=== PATIENT | male | born 1960 | race Caucasian/White ===

== ENCOUNTER 2021-06-07 09:00 | Outpatient (RCR) | payer OTHER, SELFPAY | END 2021-07-06 10:46 | disposition home or self-care (01) | LOC: HO.WCC 09:00 | PROVIDERS: PCP Internal Medicine; Visit Provider Surgery | DX: E11.622 Type 2 diabetes mellitus with other skin ulcer (principal); L97.812 Non-pressure chronic ulcer of other part of right lower leg with fat layer exposed; I87.311 Chronic venous hypertension (idiopathic) with ulcer of right lower extremity; E11.40 Type 2 diabetes mellitus with diabetic neuropathy, unspecified; E11.51 Type 2 diabetes mellitus with diabetic peripheral angiopathy without gangrene; I10 Essential (primary) hypertension; F17.210 Nicotine dependence, cigarettes, uncomplicated | CPT/HCPCS: 11042; 29580; 99212; 99214 ==

== ENCOUNTER 2021-10-23 13:34 | Outpatient (RCR) | payer OTHER, SELFPAY ==
--- NOTE | ~2021-10-23 | XR_ITS ---
EXAMINATION: XR FOOT, RIGHT CLINICAL INFORMATION: Nonhealing wound of the right foot. COMPARISON: None TECHNIQUE: AP, lateral, and oblique views of the right foot. FINDINGS: No convincing evidence for an acute bony erosion. There is evidence of some degenerative changes. XR/XR foot RT 2V IMPRESSION: Degenerative change. No convincing evidence for an acute bony erosion.
[2021-11-06 14:56] LABS: MANUAL DIFF FLAG NO
[2021-11-06 15:24] LABS: Basophils Absolute Auto 0.1 X10*3/uL (0.0-0.2); Basophils Percent Auto 0.7 % (0-2); Eosinophils Absolute Auto 0.1 X10*3/uL (0.0-0.4); Eosinophils Percent Auto 0.9 % (0-4); Hematocrit 54.6 % (42.0-52.0); Hemoglobin 17.9 g/dl (14.0-18.0); Imm Gran Abs Auto 0.03 X10*3/uL (0.00-0.03); Imm Gran Pct Auto 0.3 % (0.0-0.4); Lymphocytes Absolute Auto 2.8 X10*3/uL (1.2-4.9); Lymphocytes Percent Auto 27.2 % (20-40); Mean Corpuscular HGB Conc 32.8 g/dl (31.0-36.0); Mean Corpuscular Hemoglobin 29.3 pg (27.0-33.0); Mean Corpuscular Volume 89.4 fL (80.0-98.0); Mean Platelet Volume 9.3 fL (9.4-12.4); Monocytes Absolute Auto 0.7 X10*3/uL (0.1-1.2); Neutrophils Absolute Auto 6.6 x10*3/uL (2.0-8.3); Neutrophils Percent Auto 63.9 % (45-73); Platelet Count 234 X10*3/uL (160-400); Red Blood Count 6.11 X10*6/uL (4.60-5.80); Red Cell Distribution Width 12.6 % (11.0-16.0); White Blood Count 10.3 X10*3/uL (4.8-10.8)
[2021-11-06 15:47] LABS: Anion Gap 13 (12-20); Blood Urea Nitrogen 13 mg/dL (9-16); C Reactive Protein 0.81 mg/dL (< or = 0.50); Carbon Dioxide 30 mmol/L (22-29); Chloride 99 mmol/L (96-108); Estimated Glomerular Filt Rate > 60; Glucose Random 182 mg/dL (60-115); Potassium 5.4 mmol/L (3.3-5.1); Sodium 137 mmol/L (135-145)
[2021-11-06 16:02] LABS: Estimated Average Glucose 329 mg/dL; Hemoglobin A1c % 13.1 %
[2021-11-06 16:04] LABS: Erythrocyte Sedimentation Rate 2 MM/HR (0-15)
== END 2022-01-11 09:11 | disposition home or self-care (01) ==
LOC: HO.WCC 13:34
PROVIDERS: PCP Internal Medicine; Visit Provider Physician Assistant
DX: Z09 Encounter for follow-up examination after completed treatment for conditions other than malignant neoplasm (principal); E11.51 Type 2 diabetes mellitus with diabetic peripheral angiopathy without gangrene; E11.40 Type 2 diabetes mellitus with diabetic neuropathy, unspecified; I10 Essential (primary) hypertension; F17.210 Nicotine dependence, cigarettes, uncomplicated; Z86.718 Personal history of other venous thrombosis and embolism; Z86.31 Personal history of diabetic foot ulcer
CPT/HCPCS: 11043; 36415; 73620; 80048; 83036; 84134; 85025; 85652; 86140; 87071; 87077; 87186; 87205; 99212; 99213

== ENCOUNTER 2021-11-14 10:27 | Inpatient (IN) | payer OTHER, SELFPAY ==
--- NOTE | ~2021-11-14 | XR_ITS ---
EXAMINATION: XR FOOT, RIGHT CLINICAL INFORMATION: Pain. COMPARISON: None TECHNIQUE: AP, lateral, and oblique views of the right foot. FINDINGS: There is no fracture or dislocation or periosteal elevation or reaction especially along the base of the first MTP joint. There is a soft tissue ulceration without gas visualized at the base of the first MTP joint. There is however mild soft tissue swelling. XR/XR foot RT min 3V IMPRESSION: Likely soft tissue ulceration plantar aspect inferior to the first MTP joint. There is no bony pneumonitis suspect any osteomyelitis. No focal acute fracture, dislocation or subluxation seen.
--- NOTE | ~2021-11-14 | MR_ITS ---
EXAMINATION: MRI FOOT WITHOUT AND WITH CONTRAST, RIGHT CLINICAL INFORMATION: Deep foot wound. Evaluate for osteomyelitis. COMPARISON: Most recent right foot radiographs dated 11/14/2021. TECHNIQUE: Multisequence MR imaging of the right foot was obtained before and after the IV administration of 10 mL Gadavist contrast on a high-field strength scanner. FINDINGS: There is soft tissue ulceration along the plantar aspect of the 1st metatarsal head. This measures approximately 1.5 x 1.5 x 2 cm and extends to the region of the sesamoids. Additionally there is a peripherally enhancing fluid collection which extends between the base of the 1st and 2nd phalanx to the dorsal aspect of the 1st proximal phalanx measuring up to 3.4 cm in craniocaudal dimension, consistent with an associated abscess formation. This demonstrates peripheral enhancement. There is adjacent skin thickening as well as prominent subcutaneous edema and postcontrast enhancement, consistent with acute cellulitis. There is mildly increased T2 signal as well as decreased T1 signal and mild postcontrast enhancement within the tibial and fibular hallux sesamoids, consistent with acute osteomyelitis. There is mildly increased T2 signal with normal T1 signal within the base of the 1st proximal phalanx, likely representing reactive edema. No additional abnormal marrow signal. No stress reaction or fracture. Edema within the intrinsic musculature of the foot, which can be seen in diabetic patients. MR/MR foot RT wo/w con IMPRESSION: Soft tissue ulceration along the plantar aspect of the 1st metatarsal head which extends deep to the level of the hallux sesamoids. Associated cellulitis and abscess formation which extends dorsally between the base of the 1st and 2nd proximal phalanges. Acute osteomyelitis within the tibial and fibular hallux sesamoids. Mild reactive marrow edema in the 1st proximal phalangeal base.
[2021-11-14 11:25] VITALS: BP 150/81; PULSE 101; RESP 18; TEMP 36.9; O2SAT 96; BMI 37.5
--- NOTE | 2021-11-14 15:29 | ED_ITS ---
HPI - Extremity Injury (Lower) General Chief Complaint: Extremity Injury, Lower Stated Complaint: right foot wound Time Seen by Provider: 11/14/21 15:07 Source: patient Mode of arrival: ambulatory Limitations: no limitations History of Present Illness HPI Narrative: 60-year-old male past medical history of diabetes and chronic right great toe plantar also that requires IV antibiotics by his wound care provider Bernar. WOund began as a superficial callus ulcer was then became deeper as months go by. Patient states his fingerstick has been in the 200s for the past 2 weeks. Patient states mild foul odor and pus. Patient failed outpatient oral antibiotic treatment. Related Data Home Medications Medication Instructions Recorded Confirmed amitriptyline 25 mg tablet 1 tab PO BEDTIME 11/14/21 11/14/21 atorvastatin 40 mg tablet 1 tab PO BEDTIME 11/14/21 11/14/21 dulaglutide 1.5 mg/0.5 mL 1.5 mg SUBCUT MO 11/14/21 11/14/21 subcutaneous pen injector (Trulicity) empagliflozin 25 mg tablet 1 tab PO DAILY 11/14/21 11/14/21 (Jardiance) levofloxacin 500 mg tablet 1 tab PO DAILY 11/14/21 11/14/21 metformin 1,000 mg tablet 1 tab PO BID 11/14/21 11/14/21 montelukast 10 mg tablet 1 tab PO BEDTIME 11/14/21 11/14/21 Allergies Allergy/AdvReac Type Severity Reaction Status Date / Time No Known Allergies Allergy Verified 11/14/21 11:24 Review of Systems Review of Systems: Yes all other systems are reviewed and are negative Constitutional: Constitutional: Reports as per HPI and Reports no additional constitutional complaints Eyes: Eyes: Reports as per HPI and Reports no additional eye complaints ENT: Reports system reviewed and no additional complaints, except as doc umented and Reports as per HPI Cardiovascular: Cardiovascular: Reports as per HPI and Reports no additional cardiovascular complaints Respiratory: Respiratory: Reports as per HPI and Reports no additional respiratory complaints Gastrointestinal: Gastrointestinal: Reports as per HPI and Reports no additional gastrointestinal complaints Musculoskeletal: Musculoskeletal: Reports no additional musculoskeletal complaints and Reports as per HPI Neurologic: Reports system reviewed and no additional complaints, except as documented and Reports as per HPI Psychiatric: Psychiatric: Reports no additional psychiatric complaints and Reports as per HPI [facility] Social History Social History Alcohol intake: never Patient Tobacco Use Status: Current everyday Tobacco user Use of substances other than those prescribed or required for medical reasons: No Advance Directives: No Advance Directives Information Provided: No Physical Exam Vital Signs: Vital Signs: Last Vital Signs Temp 97.9 F 11/14/21 18:13 Pulse 88 11/14/21 22:55 Resp 18 11/14/21 18:13 BP 146/76 H 11/14/21 22:55 Pulse Ox 93 11/14/21 22:55 BMI result Body Mass Index 37.5 Const: General: cooperative, healthy appearing, comfortable, no acute distress, well developed, alert and awake Orientation/consciousness: patient oriented x3 HENMT: Head: Yes normal to inspection, Yes No palpable skull fracture present, Yes normocephalic, Yes atraumatic and No abrasion Eyes: General: appearance normal, both eyes and all related structures Neck: Neck: Yes normal visual inspection, Yes full ROM, Yes no lymphadenopathy, Yes no meningeal signs, Yes trachea midline, Yes supple, No anterior neck swelling and No tender Chest: Chest palpation & inspection: normal inspection of the chest and normal palpation of entire chest wall Resp: Effort & Inspection: normal respiratory effort and able to speak in complete sentences Auscultation: clear to auscultation bilaterally Cardio: Jugular venous distension: no JVD Heart sounds: S1 normal heart sound present and S2 normal heart sound present GI: Inspection: Yes normal to inspection and No abdominal wall ecchymosis Palpation (GI): Soft to palpation, not firm, nontender, no guarding and not rigi d : General: No CVA tenderness and Yes no CVA tenderness Back/Spine/Pelvis: Back: no CVA tenderness, No CVA tenderness and No back tenderness Skin: General skin exam: no rashes or lesions noted and elasticity normal Neuro: General: patient oriented x3, gait normal, no meningeal signs and CN's II-XI intact bilaterally Cranial nerves: Yes CN's II-XII intact bilaterally Extrem: Other: Right heel positive for heel ulcer that is deep and tracking but not much for any pus or foul odor. sternal area surrounding slight yellow discharge pedal pulses intact. Motor exam intact. Rest of lower extremity in General: Yes normal to inspection and Yes full ROM Psych: Appearance: grossly normal, well kempt and not disheveled Course Course Course Narrative: official x-ray negative for osteomyelitis. Will do labs including ESR CRP and get hospital involved. Reevaluation(s) Reevaluation #1: Lactic acid and white blood cell count normal. ESR CRP elevated. Patient started on Zosyn. Discussed case with Dr. De La Rosa for admission for failed p.o. antibiotics for cellulitis/ diabetic foot. Dr. Bright Infectious Disease is on board with the case. She agrees with plan for admissino. Time: 18:35 MDM - Extremity Injury (Lower) Lab Data Result diagrams: 11/14/21 15:52 11/14/21 15:52 Labs: Lab Results 11/14/21 11/14/21 11/14/21 Range/Units 15:52 15:52 15:52 WBC 10.2 (4.8-10.8) X10*3/uL RBC 5.93 H (4.60-5.80) X10*6/uL Hgb 17.4 (14.0-18.0) g/dl Hct 51.8 (42.0-52.0) % MCV 87.4 (80.0-98.0) fL MCH 29.3 (27.0-33.0) pg MCHC 33.6 (31.0-36.0) g/dl RDW 12.6 (11.0-16.0) % Plt Count 287 (160-400) X10*3/uL MPV 9.1 L (9.4-12.4) fL Immature Gran % (Auto) 0.4 (0.0-0.4) % Neut % (Auto) 73.0 (45-73) % Lymph % (Auto) 17.9 L (20-40) % Hamlin % (Auto) 7.5 (2-11) % Eos % (Auto) 0.8 (0-4) % Baso % (Auto) 0.4 (0-2) % Lymph # (Auto) 1.8 (1.2-4.9) X10*3/uL Hamlin # (Auto) 0.8 (0.1-1.2) X10*3/uL Eos # (Auto) 0.1 (0.0-0.4) X10*3/uL Baso # (Auto) 0.0 (0.0-0.2) X10*3/uL Abs Immat Gran (auto) 0.04 H (0.00-0.03) X10*3/uL Absolute Neuts (auto) 7.4 (2.0-8.3) x10*3/uL Absolute Nucleated RBC 0.000 (0.0-0.012) X10*3/uL Nucleated RBC % (auto) 0.0 (0.0-0.2) /100WBC ESR 28 H (0-15) MM/HR Sodium 139 (135-145) mmol/L Potassium 4.2 D (3.3-5.1) mmol/L Chloride 101 (96-108) mmol/L Carbon Dioxide 28 (22-29) mmol/L Anion Gap 14 (12-20) BUN 9 (9-16) mg/dL Creatinine 0.67 (0.5-1.4) mg/dL Estim Creat Clear Calc 176.5 Estimated GFR > 60 Random Glucose 131 H (60-115) mg/dL Lactic Acid (0.5-2.0) mmol/L Calcium 9.2 D (8.4-10.2) mg/dL Total Bilirubin 0.4 (0.0-1.0) mg/dL AST 12 (5-37) U/L ALT 14 (0-40) U/L Alkaline Phosphatase 93 (39-117) U/L C-Reactive Protein 10.96 H (< or = 0.50) mg/dL Total Protein 6.3 L (6.5-8.0) g/dL Albumin 3.6 (3.5-5.0) g/dL COVID-19 (WEI) (Negative) COVID-19 Clin Com 11/14/21 11/14/21 Range/Units 15:52 16:57 WBC (4.8-10.8) X10*3/uL RBC (4.60-5.80) X10*6/uL Hgb (14.0-18.0) g/dl Hct (42.0-52.0) % MCV (80.0-98.0) fL MCH (27.0-33.0) pg MCHC (31.0-36.0) g/dl RDW (11.0-16.0) % Plt Count (160-400) X10*3/uL MPV (9.4-12.4) fL Immature Gran % (Auto) (0.0-0.4) % Neut % (Auto) (45-73) % Lymph % (Auto) (20-40) % Hamlin % (Auto) (2-11) % Eos % (Auto) (0-4) % Baso % (Auto) (0-2) % Lymph # (Auto) (1.2-4.9) X10*3/uL Hamlin # (Auto) (0.1-1.2) X10*3/uL Eos # (Auto) (0.0-0.4) X10*3/uL Baso # (Auto) (0.0-0.2) X10*3/uL Abs Immat Gran (auto) (0.00-0.03) X10*3/uL Absolute Neuts (auto) (2.0-8.3) x10*3/uL Absolute Nucleated RBC (0.0-0.012) X10*3/uL Nucleated RBC % (auto) (0.0-0.2) /100WBC ESR (0-15) MM/HR Sodium (135-145) mmol/L Potassium (3.3-5.1) mmol/L Chloride (96-108) mmol/L Carbon Dioxide (22-29) mmol/L Anion Gap (12-20) BUN (9-16) mg/dL Creatinine (0.5-1.4) mg/dL Estim Creat Clear Calc Estimated GFR Random Glucose (60-115) mg/dL Lactic Acid 0.9 (0.5-2.0) mmol/L Calcium (8.4-10.2) mg/dL Total Bilirubin (0.0-1.0) mg/dL AST (5-37) U/L ALT (0-40) U/L Alkaline Phosphatase (39-117) U/L C-Reactive Protein (< or = 0.50) mg/dL Total Protein (6.5-8.0) g/dL Albumin (3.5-5.0) g/dL COVID-19 (WEI) Negative (Negative) COVID-19 Clin Com See Note Discharge Plan Discharge Clinical Impression: Cellulitis of right foot, Diabetic foot ulcer Patient Disposition: Admitted As Inpatient
[2021-11-14 16:01] LABS: MANUAL DIFF FLAG NO
[2021-11-14 16:04] LABS: Basophils Percent Auto 0.4 % (0-2); Eosinophils Absolute Auto 0.1 X10*3/uL (0.0-0.4); Eosinophils Percent Auto 0.8 % (0-4); Hematocrit 51.8 % (42.0-52.0); Hemoglobin 17.4 g/dl (14.0-18.0); Imm Gran Abs Auto 0.04 X10*3/uL (0.00-0.03); Imm Gran Pct Auto 0.4 % (0.0-0.4); Lymphocytes Absolute Auto 1.8 X10*3/uL (1.2-4.9); Lymphocytes Percent Auto 17.9 % (20-40); Mean Corpuscular HGB Conc 33.6 g/dl (31.0-36.0); Mean Corpuscular Hemoglobin 29.3 pg (27.0-33.0); Mean Corpuscular Volume 87.4 fL (80.0-98.0); Mean Platelet Volume 9.1 fL (9.4-12.4); Monocytes Absolute Auto 0.8 X10*3/uL (0.1-1.2); Monocytes Percent Auto 7.5 % (2-11); Neutrophils Absolute Auto 7.4 x10*3/uL (2.0-8.3); Platelet Count 287 X10*3/uL (160-400); Red Blood Count 5.93 X10*6/uL (4.60-5.80); Red Cell Distribution Width 12.6 % (11.0-16.0); White Blood Count 10.2 X10*3/uL (4.8-10.8)
[2021-11-14] MEDS: 0.9 % Sodium Chloride 1,000 ML 999 ML IV ×2 (16:10→16:20)
[2021-11-14 16:13] VITALS: BP 136/74; PULSE 87; RESP 18; TEMP 36.6; O2SAT 97
[2021-11-14 16:15] LABS: Lactic Acid 0.9 mmol/L (0.5-2.0)
[2021-11-14 16:19] LABS: Alanine Aminotransferase 14 U/L (0-40); Albumin Level 3.6 g/dL (3.5-5.0); Alkaline Phosphatase 93 U/L (39-117); Anion Gap 14 (12-20); Aspartate Amino Transferase 12 U/L (5-37); Bilirubin Total 0.4 mg/dL (0.0-1.0); Blood Urea Nitrogen 9 mg/dL (9-16); C Reactive Protein 10.96 mg/dL (< or = 0.50); Calcium 9.2 mg/dL (8.4-10.2); Carbon Dioxide 28 mmol/L (22-29); Chloride 101 mmol/L (96-108); Creatinine Clr Calc Pharmacy 176.5; Estimated Glomerular Filt Rate > 60; Glucose Random 131 mg/dL (60-115); Potassium 4.2 mmol/L (3.3-5.1); Sodium 139 mmol/L (135-145); Total Protein 6.3 g/dL (6.5-8.0)
[2021-11-14 17:02] LABS: Erythrocyte Sedimentation Rate 28 MM/HR (0-15)
--- NOTE | 2021-11-14 17:06 | PHA.MEDREC ---
Pharmacy Consult ? Medication Reconciliation Pharmacy has completed the medication reconciliation.
[2021-11-14 17:27] LABS: COVID-19 Test Negative (Negative); IDNOW Serial# 9DD0AD1C
[2021-11-14] MEDS: Piperacillin Sodium/Tazobactam 3.375 GM in 0.9 % Sodium Chloride 50 ML IV (17:52)
[2021-11-14 18:13] VITALS: BP 161/61; PULSE 92; RESP 18; TEMP 36.6; O2SAT 96
--- NOTE | 2021-11-14 18:29 | P.HPHOSP_ITS ---
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, and had been noted to have prior episodes of infection requiring antibiotic treatment, 1 month ago he noted open wound plantar surface of right foot that began a superficial ulcer, therefore was referred to wound care clinic and has been treated with dressing change, but since yesterday noted to have redness dorsum of right foot associated with swelling therefore was referred to emergency room for IV antibiotics by wound care team, patient denies associated fever chills, denies nausea, vomiting, no abdominal pain, complaining of intermittent foot pain, decreased sensation distal foot,admits to have elevated blood sugars in last several days in the range of 200, last hemoglobin A1c in October was 13.1, in emergency room patient noted to have elevated CRP of 10.96 blood sugars 131, x-ray of foot showed soft tissue ulceration plantar aspect inferior to the 1st MTP joint, no evidence of osteomyelitis was noted, patient received 1 dose of IV Zosyn and now being admitted to [facility] for further evaluation and treatment for right foot cellulitis and nonhealing diabetic foot ulcer. Review of Systems Review of Systems: General no headache no dizziness no fever chills. CVS no chest pain, no palpitation. Respiratory no cough no shortness of breath Gastrointestinal no nausea no vomiting, no abdominal pain no urinary urgency or frequency Musculoskeletal no pain Skin chronic dry skin both lower extremities Psych no complaints of anxiety or depression Yes all other systems are reviewed and are negative [facility] Functional capacity: independent ambulation Pertinent family history: Father of stroke at old age, mother had brain tumor, not aware of name Social History Household Members: None Alcohol intake: never Patient Tobacco Use Status: Current everyday Tobacco user Tobacco use type: Cigarette Smoked in Last 30 Days: Yes Patient Interested in Nicotine Replacement: No Patient Given Instructions on How to Stop Smoking: No Second Hand Smoke Exposure: No Use of substances other than those prescribed or required for medical reasons: No Have you been hit, kicked, punched, or otherwise hurt by someone within the past year? If so, by whom?: No Do you feel safe in your current relationship?: No Is there a partner from a previous relationship who is making you feel unsafe now?: No Zoroastrianism Healthcare Practices: sikh Advance Directives: No Advance Directives Information Provided: No Advance Directives Date on File: 11/15/21 Do you have thoughts of harming others: None Do you have a plan to hurt others: No Plan Recently lost weight without trying: No Eating poorly because of decreased appetite: No Nutrition Risks: No Nutritional Risk Poor oral hygiene: No service: No Current occupational status: disabled Meds Allergies Allergy/AdvReac Type Severity Reaction Status Date / Time No Known Allergies Allergy Verified 11/14/21 11:24 Active Medications: Current Medications Acetaminophen (Acetaminophen 325 Mg Tablet) 650 mg PO Q6H PRN PRN Reason: Pain, Mild (Pain Scale 1-3) Amitriptyline HCl (Amitriptyline Hcl 25 Mg Tablet) 25 mg PO BEDTIME [facility] Atorvastatin Calcium (Atorvastatin Calcium 40 Mg Tablet) 40 mg PO BEDTIME [facility] Dextrose (Dextrose 50 % 25 Gm/50 Ml Vial) 25 gm IVPUSH Q15M PRN; Protocol PRN Reason: per Hypoglycemia Standing Ord. Enoxaparin Sodium (Enoxaparin Sodium 40 Mg/0.4 Ml Syringe) 40 mg SUBCUT Q24H [facility] Glucose (Glucose Gel 15 Gm Gel..Gram.) 15 gm PO Q15M PRN; Protocol PRN Reason: per Hypoglycemia Standing Ord. Piperacillin Sod/Tazobactam (Sod 3.375 gm/ Sodium Chloride) 50 mls @ 100 mls/hr IV Q6H [facility] Insulin Glargine (Insulin Glargine,Hum.Rec.Anlog 100 Unit/Ml 10 Ml Vial) 8 unit SUBCUT BEDTIME [facility] Insulin Human Lispro (Insulin Lispro 100 Unit/Ml 3 Ml Vial) 0 unit SUBCUT QIDACHS [facility]; Protocol Montelukast Sodium (Montelukast Sodium 10 Mg Tablet) 10 mg PO BEDTIME [facility] Non-Formulary Medication (Empagliflozin [Jardiance]) 1 tab PO DAILY [facility] Ondansetron HCl (Ondansetron Hcl 4 Mg/2 Ml Vial) 4 mg IVPUSH Q8H PRN PRN Reason: Nausea and Vomiting Oxycodone HCl (Oxycodone Hcl Immed Release 5 Mg Tablet) 5 mg PO Q6H PRN PRN Reason: Pain, Severe (Pain Scale 7-10) Pharmacy Consult (Consult Rx Perform Med Rec) 1 each MISCELLANE ONCE PRN PRN Reason: Consult order Sodium Chloride (0.9 % Sodium Chloride Flush 3 Ml Syringe) 3 ml IVFLUSH QSHIFT REPLACED BY [facility] Home Medications Medication Instructions Recorded Confirmed Last Taken Type amitriptyline 25 mg tablet 1 tab PO BEDTIME 11/14/21 11/14/21 11/13/21 History atorvastatin 40 mg tablet 1 tab PO BEDTIME 11/14/21 11/14/21 11/13/21 History dulaglutide 1.5 mg/0.5 mL 1.5 mg SUBCUT MO 11/14/21 11/14/21 11/14/21 History subcutaneous pen injector (Trulicity) empagliflozin 25 mg tablet 1 tab PO DAILY 11/14/21 11/14/21 11/13/21 History (Jardiance) levofloxacin 500 mg tablet 1 tab PO DAILY 11/14/21 11/14/21 11/14/21 History metformin 1,000 mg tablet 1 tab PO BID 11/14/21 11/14/21 11/13/21 History montelukast 10 mg tablet 1 tab PO BEDTIME 11/14/21 11/14/21 11/13/21 History Physical Exam Vital Signs and Narrative: Vital Signs: Last Vital Signs Temp 97.9 F 11/14/21 18:13 Pulse 92 11/14/21 18:13 Resp 18 11/14/21 18:13 BP 161/61 H 11/14/21 18:13 Pulse Ox 96 11/14/21 18:13 BMI result Body Mass Index 37.5 General awake alert, in no acute distress. HEENT pupil equal round reactive to light and accommodation anicteric sclerae Neck supple no JVD. CVS regular rate rhythm, Respiratory lungs clear to auscultation, no respiratory distress, no wheeze, no rhonchi. Gastrointestinal abdomen soft, obese, nontender, bowel sounds audible, no guarding , no rigidity. Extremities dry scaly skin both lower extremities with discoloration, deep wound plantar surface right foot, with small amount of pus drainage, redness on dorsum of right foot , mild tenderness to palpation, decreased sensation plantar surface of toes both feet Neuro nonfocal ,speech clear. Skin no rash Psych appropriate affect Results Labs CBC and Chem 7: 11/14/21 15:52 11/14/21 15:52 Labs: Laboratory Results - last 24 hr 11/14/21 11/14/21 11/14/21 15:52 15:52 15:52 MCV 87.4 MCH 29.3 MCHC 33.6 RDW 12.6 Plt Count 287 MPV 9.1 L Immature Gran % (Auto) 0.4 Neut % (Auto) 73.0 Lymph % (Auto) 17.9 L Metcalfe % (Auto) 7.5 Eos % (Auto) 0.8 Baso % (Auto) 0.4 Lymph # (Auto) 1.8 [place]calfe # (Auto) 0.8 Eos # (Auto) 0.1 Baso # (Auto) 0.0 Abs Immat Gran (auto) 0.04 H Absolute Neuts (auto) 7.4 Absolute Nucleated RBC 0.000 Nucleated RBC % (auto) 0.0 ESR 28 H Anion Gap 14 Estim Creat Clear Calc 176.5 Estimated GFR > 60 Random Glucose 131 H Lactic Acid Calcium 9.2 D Total Bilirubin 0.4 AST 12 ALT 14 Alkaline Phosphatase 93 C-Reactive Protein 10.96 H Total Protein 6.3 L Albumin 3.6 COVID-19 (WEI) COVID-19 Clin Com 11/14/21 11/14/21 15:52 16:57 MCV MCH MCHC RDW Plt Count MPV Immature Gran % (Auto) Neut % (Auto) Lymph % (Auto) Metcalfe % (Auto) Eos % (Auto) Baso % (Auto) Lymph # (Auto) [place]calfe # (Auto) Eos # (Auto) Baso # (Auto) Abs Immat Gran (auto) Absolute Neuts (auto) Absolute Nucleated RBC Nucleated RBC % (auto) ESR Anion Gap Estim Creat Clear Calc Estimated GFR Random Glucose Lactic Acid 0.9 Calcium Total Bilirubin AST ALT Alkaline Phosphatase C-Reactive Protein Total Protein Albumin COVID-19 (WEI) Negative COVID-19 Clin Com See Note Imaging Radiologist's Impressions: Impressions Foot X-Ray 11/14/21 12:45 IMPRESSION: Likely soft tissue ulceration plantar aspect inferior to the first MTP joint. There is no bony pneumonitis suspect any osteomyelitis. No focal acute fracture, dislocation or subluxation seen. Assessment and Plan (1) Cellulitis of right foot: Status: Acute (2) Diabetic foot ulcer: Status: Acute (3) Obesity (BMI 30-39.9): Status: Acute (4) Hyperlipidemia: Status: Acute (5) Diabetes mellitus: Status: Acute 60-year-old gentleman with past medical history significant for uncontrolled diabetes mellitus type 2 on metformin, insulin, history of hyperlipidemia, with history of right foot callus requiring frequent shaving by [employer] currently [facility] due to open wound plantar surface of right foot was sent to [facility] due to redness dorsum of foot and drainage from foot wound, in emergency room workup showed elevated CRP and ESR, plain x-ray of foot showed no evidence of osteomyelitis, will admit patient for IV antibiotics, surgical consult for possible wound debridement. Diabetic foot ulcer/cellulitis of right foot Admit to medical floor, continue IV Zosyn follow 2 set of blood cultures, recent right foot culture grew Klebsiella/Enterococcus strict blood sugar control, obtain surgical consultation/ID Daily dressing No evidence of sepsis Diabetes mellitus with uncontrolled blood sugar Placed on diabetic diet, Lantus insulin and Humalog sliding scale Strongly recommend compliance with medication and diet Hyperlipidemia Continue statin Tobacco use disorder Counseling done patient declined nicotine Obesity Recommend weight loss and low-calorie diet DVT prophylaxis with Lovenox subcu Code status full code Quality Stroke Does the patient have a stroke diagnosis?: No VTE Prior VTE?: No VTE Risk Level:: Medical - moderate - high VTE Device Contraindication: Treatment Not Indicated VTE Drug Contraindication: N/A - Med Ordered
[2021-11-14] MEDS: Atorvastatin Calcium 40 MG TABLET PO (20:12)
[2021-11-14] MEDS: Montelukast Sodium 10 MG TABLET PO (20:12)
[2021-11-14] MEDS: Amitriptyline HCl 25 MG TABLET PO (20:12)
--- NOTE | 2021-11-14 20:21 | PC.NURSE ---
Addendum entered by Mary Ballesteros RN 11/14/21 20:23: MD De La Rosa made aware Original Note: PT REPORTS HE WILL NOT TAKE THE LOVENOX SHOT BECAUSE LAST TIME HE GOT A LOT OF BRUISING PT REPORTS HE WILL ONLY TAKE THAT TYPE OF MEDICATIONS A PILL FORM . PT ALSO REFUSING LANTUS AND HUMALOG INSULIN HE TOOK HIS TRULICITY ONCE A WEEK SHOT LAST NIGHT ON 11/13/2021
[2021-11-14 22:55] VITALS: BP 146/76; PULSE 88; O2SAT 93
[2021-11-14 22:56] LABS: Glucose, Whole Blood 184 mg/dL (60-115)
[2021-11-14] MEDS: Acetaminophen 325 MG TABLET 650 MG PO (23:12)
[2021-11-15 01:18] VITALS: BP 117/51; PULSE 87; RESP 16; TEMP 36.6; O2SAT 93
[2021-11-15 05:57] VITALS: BP 143/80; PULSE 93; RESP 16; TEMP 36.6; O2SAT 94
[2021-11-15] MEDS: Piperacillin Sodium/Tazobactam 3.375 GM in 0.9 % Sodium Chloride 50 ML IV ×4 (06:11→18:45)
[2021-11-15 07:41] LABS: Glucose, Whole Blood 115 mg/dL (60-115)
--- NOTE | 2021-11-15 10:20 | MHC.CM.PN ---
CM MET WITH PT IN ED16 PT REPORTS HE LIVES ALONE AND IS INDEPENDENT AT BASELINE PT DENIES USE OF DME OR HOME SERVICES PT REPORTS HE HAS A HCP NAMING HIS BROTHER, CHARLY, HIS AGENT PT REPORTS HE WAS SUPPOSED TO SEE A DOCTOR AT [facility] IN [place] TODAY FOR A NEW PT APPT. HE REPORTS HE HAS TRIED TO CALL SEVERAL TIMES AND CANNOT REACH ANYONE PT REPORTS HE WILL NEED LONG TERM SERVICES AT [place] FOR DRESSING CHANGES PT IS INTERESTED IN BEING SET UP WITH A NEW PCP IS [facility] CANNOT GET HIM IN AGAIN SOON PT REPORTS HIS ONLY CRITERIA FOR A PCP IS THEY TAKE HIS INSURANCE AND ARE FEMALE TASK SENT TO [facility] CURRENTLY PTS DCP IS TBD PT LIKELY TO DC HOME HOWEVER WILL LIKELY NEED LONG TERM SERVICES AND DOES NOT HAVE AN ACTIVE PCP PT WILL ARRANGE TRANSPORT AT DC
--- NOTE | 2021-11-15 10:30 | PC.NURSE ---
called for report rn to call back
[2021-11-15 11:42] LABS: Glucose, Whole Blood 131 mg/dL (60-115)
--- NOTE | 2021-11-15 11:51 | P.PNIM_ITS ---
Subjective Subjective Date of Service: 11/15/21 Interval History: Complaining of pain right foot, denies fever chills, no nausea, no vomiting no headache, no dizziness. no other acute issues overnight. Review of Systems Review of Systems: Yes all other systems are reviewed and are negative Physical Exam Vital Signs: Vital Signs: Last Vital Signs Temp 97.8 F 11/15/21 05:57 Pulse 93 11/15/21 05:57 Resp 16 11/15/21 05:57 BP 143/80 H 11/15/21 05:57 Pulse Ox 94 11/15/21 05:57 BMI result Body Mass Index 37.5 General awake alert, in no acute distress.? Neck supple no JVD. CVS? regular rate rhythm, good peripheral pulses Respiratory lungs clear to auscultation, no respiratory distress, no wheeze, no rhonchi. Gastrointestinal abdomen soft, obese, nontender, bowel sounds audible, no guarding , no rigidity. Extremities dry scaly skin both lower extremities with discoloration, deep wound plantar surface right foot, with small amount of pus drainage, mild decrease redness on dorsum of right foot , mild tenderness to palpation, decreased sensation plantar surface of toes both feet Neuro nonfocal ,speech clear. Skin no rash Psych appropriate affect Objective Data Active Medications Acetaminophen (Acetaminophen 325 Mg Tablet) 650 mg PO Q6H PRN PRN Reason: Pain, Mild (Pain Scale 1-3) Last Admin: 11/14/21 23:12 Dose: 650 mg Documented by: DARELL Amitriptyline HCl (Amitriptyline Hcl 25 Mg Tablet) 25 mg PO BEDTIME [facility] Last Admin: 11/14/21 20:12 Dose: 25 mg Documented by: DARELL Atorvastatin Calcium (Atorvastatin Calcium 40 Mg Tablet) 40 mg PO BEDTIME [facility] Last Admin: 11/14/21 20:12 Dose: 40 mg Documented by: DARELL Dextrose (Dextrose 50 % 25 Gm/50 Ml Vial) 25 gm IVPUSH Q15M PRN; Protocol PRN Reason: per Hypoglycemia Standing Ord. Enoxaparin Sodium (Enoxaparin Sodium 40 Mg/0.4 Ml Syringe) 40 mg SUBCUT Q24H [facility] Last Admin: 11/14/21 20:13 Dose: Not Given Documented by: DARELL Non-Admin Reason: Patient Refused Glucose (Glucose Gel 15 Gm Gel..Gram.) 15 gm PO Q15M PRN; Protocol PRN Reason: per Hypoglycemia Standing Ord. Piperacillin Sod/Tazobactam (Sod 3.375 gm/ Sodium Chloride) 50 mls @ 100 mls/hr IV Q6H [facility] Last Infusion: 11/15/21 07:15 Dose: 0 mls/hr Documented by: MOIRA Levofloxacin (Levaquin) 750 mg in 150 mls @ 100 mls/hr IV Q24H [facility] Insulin Glargine (Insulin Glargine,Hum.Rec.Anlog 100 Unit/Ml 10 Ml Vial) 8 unit SUBCUT BEDTIME [facility] Last Admin: 11/14/21 20:13 Dose: Not Given Documented by: DARELL Non-Admin Reason: Patient Refused Insulin Human Lispro (Insulin Lispro 100 Unit/Ml 3 Ml Vial) 0 unit SUBCUT QIDACHS [facility]; Protocol Last Admin: 11/15/21 11:46 Dose: Not Given Documented by: LIZABETH Non-Admin Reason: BS 131 Lactic Acid (Ammonium Lactate 12 % Lotion 226 Gm Bottle) 1 appl TOPICAL BID [facility]; Protocol Montelukast Sodium (Montelukast Sodium 10 Mg Tablet) 10 mg PO BEDTIME [facility] Last Admin: 11/14/21 20:12 Dose: 10 mg Documented by: DARELL Non-Formulary Medication (Empagliflozin [Jardiance]) 1 tab PO DAILY [facility] Ondansetron HCl (Ondansetron Hcl 4 Mg/2 Ml Vial) 4 mg IVPUSH Q8H PRN PRN Reason: Nausea and Vomiting Oxycodone HCl (Oxycodone Hcl Immed Release 5 Mg Tablet) 5 mg PO Q6H PRN PRN Reason: Pain, Severe (Pain Scale 7-10) Pharmacy Consult (Consult Rx Perform Med Rec) 1 each MISCELLANE ONCE PRN PRN Reason: Consult order Sodium Chloride (0.9 % Sodium Chloride Flush 3 Ml Syringe) 3 ml IVFLUSH QSHIFT [facility] Last Admin: 11/15/21 07:44 Dose: Not Given Documented by: MOIRA Non-Admin Reason: Patient Asleep Labs CBC & Chem 7: 11/14/21 15:52 11/14/21 15:52 Labs: Laboratory Results - last 24 hr 11/14/21 11/14/21 11/14/21 15:52 15:52 15:52 MCV 87.4 MCH 29.3 MCHC 33.6 RDW 12.6 Plt Count 287 MPV 9.1 L Immature Gran % (Auto) 0.4 Neut % (Auto) 73.0 Lymph % (Auto) 17.9 L [place] % (Auto) 7.5 Eos % (Auto) 0.8 Baso % (Auto) 0.4 Lymph # (Auto) 1.8 [place] # (Auto) 0.8 Eos # (Auto) 0.1 Baso # (Auto) 0.0 Abs Immat Gran (auto) 0.04 H Absolute Neuts (auto) 7.4 Absolute Nucleated RBC 0.000 Nucleated RBC % (auto) 0.0 ESR 28 H Anion Gap 14 Estim Creat Clear Calc 176.5 Estimated GFR > 60 POC Glucose Random Glucose 131 H Lactic Acid Calcium 9.2 D Total Bilirubin 0.4 AST 12 ALT 14 Alkaline Phosphatase 93 C-Reactive Protein 10.96 H Total Protein 6.3 L Albumin 3.6 COVID-19 ([facility]) COVID-19 Clin Com 11/14/21 11/14/21 11/14/21 15:52 16:57 22:51 MCV MCH MCHC RDW Plt Count MPV Immature Gran % (Auto) Neut % (Auto) Lymph % (Auto) [place] % (Auto) Eos % (Auto) Baso % (Auto) Lymph # (Auto) [place] # (Auto) Eos # (Auto) Baso # (Auto) Abs Immat Gran (auto) Absolute Neuts (auto) Absolute Nucleated RBC Nucleated RBC % (auto) ESR Anion Gap Estim Creat Clear Calc Estimated GFR POC Glucose 184 H Random Glucose Lactic Acid 0.9 Calcium Total Bilirubin AST ALT Alkaline Phosphatase C-Reactive Protein Total Protein Albumin COVID-19 ([facility]) Negative COVID-[employer] Com See Note 11/15/21 11/15/21 07:23 11:38 MCV MCH MCHC RDW Plt Count MPV Immature Gran % (Auto) Neut % (Auto) Lymph % (Auto) [place] % (Auto) Eos % (Auto) Baso % (Auto) Lymph # (Auto) [place] # (Auto) Eos # (Auto) Baso # (Auto) Abs Immat Gran (auto) Absolute Neuts (auto) Absolute Nucleated RBC Nucleated RBC % (auto) ESR Anion Gap Estim Creat Clear Calc Estimated GFR POC Glucose 115 131 H Random Glucose Lactic Acid Calcium Total Bilirubin AST ALT Alkaline Phosphatase C-Reactive Protein Total Protein Albumin COVID-19 ([facility]) COVID-19 Clin Com Microbiology Microbiology Results: Microbiology 11/14/21 16:25 Gram Stain - Final Foot Right Routine Culture - Preliminary Culture in progress. 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 Diabetic foot ulcer/cellulitis of right foot continue IV Zosyn and IV Levaquin day 2, blood cultures x 2 pend., recent right foot culture grew Klebsiella/Enterococcus strict blood sugar control, oxycodone as needed for pain Seen by Dr. Henderson he recommend MRI foot, await ID input regarding antibiotic choice and duration Daily dressing change as per wound nurse No evidence of sepsis Diabetes mellitus with uncontrolled blood sugar Continue diabetic diet, patient took Trulicity on 11/13/20, continue Humalog sliding scale, will hold Jardiance and metformin Strongly recommend compliance with home medication and diet since hemoglobin A1c 13.1 Hyperlipidemia Continue statin Tobacco use disorder Counseling done patient declined nicotine Obesity Recommend weight loss and low-calorie diet DVT prophylaxis with Lovenox subcu Code status full code Quality Stroke Does the patient have a stroke diagnosis?: No VTE Prior VTE?: No VTE Risk Level:: Medical - moderate - high VTE Device Contraindication: Treatment Not Indicated VTE Drug Contraindication: N/A - Med Ordered
--- NOTE | 2021-11-15 11:51 | PC.NURSE ---
Skin/wound assessment completed today. Patient has a diabetic ulcer to right plantar foot measuring 1.4 x 1.4 x 1.6 with tunneling at 6:00 O'clock at 7cm. Irrigated with normal saline, then strip of silver alginate tucked into wound covered with non woven gauze and roll gauze. No other skin issues noted at this time.
[2021-11-15 12:00] VITALS: BP 158/80; PULSE 87; RESP 19; TEMP 36.1; O2SAT 96
[2021-11-15] MEDS: levoFLOXacin/D5W 750 MG/150 ML PIGGYBACK 100 MG IV (12:19)
[2021-11-15] MEDS: oxyCODONE HCl Immed Release 5 MG TABLET PO ×2 (12:54→19:57)
--- NOTE | 2021-11-15 13:02 | P.CDIC_ITS ---
CDI Concurrent Query Documentation Clarification: PHYSICIAN'S DOCUMENTATION REQUEST Date of Query: 11/15/21 1302 Patient Name: Elie Crouch Admit Date: 11/14/21 Dear Doctor, A review of the medical record indicates additional documentation may be needed. Please review below and update the documentation accordingly. Risk Factors/Clinical Indicators/Treatments Per H&P 11/14/20: Diabetic foot ulcer/cellulitis of right foot Please clarify the relationship between these conditions: * Yes, Cellulitis right foot is related to / associated with / due to Diabetes Mellitus * No, Cellulitis right footis not related to / associated with / due to Diabetes Mellitus * Unable to determine Use of terms such as suspected, likely, concern for, or probable (associated with a specific diagnosis that is being evaluated, monitored, or treated as if it exists) are acceptable and can be coded in the inpatient setting, when documented at the time of discharge. Thank you, Elen Leach RN Extension: [phone] Please use your independent medical judgment in providing your response. THIS QUERY IS PART OF THE PERMANENT MEDICAL RECORD Provider Response: Other Other Diagnosis: i think its already written
--- NOTE | 2021-11-15 14:33 | P.CONGS_ITS ---
History of Present Illness Consult details Consult date: 11/15/21 Narrative: 60-year-old male referred to me because of a plantar ulcer. He has a long history of diabetes. He was sent to the ER yesterday by the [facility] because of cellulitis of his right foot. 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 The seemed to have been noted to be worse yesterday. He denies any fever or chills. He denies any worsening pain. He admits to consistent control of his blood sugars. His last hemoglobin A1c was 13 as a matter fact. Review of Systems Constitutional: Constitutional: Denies chills and Denies fever(s) Cardiovascular: Cardiovascular: Denies chest pain, Denies dyspnea and Denies dyspnea on exertion Respiratory: Respiratory: Denies cough, Denies dyspnea and Denies dyspnea on exertion Gastrointestinal: Gastrointestinal: Denies hematochezia and Denies change in bowel habits Genitourinary: Genitourinary: Denies hematuria and Denies difficulty urinating Musculoskeletal: Musculoskeletal: Denies back pain and Denies limited range of motion Neurologic: Denies focal weakness and Denies convulsions Psychiatric: Psychiatric: Denies depression and Denies mood swings PMFSH Past Medical History Medical History Cellulitis of right foot Diabetes mellitus Diabetic foot ulcer Hyperlipidemia Obesity (BMI 30-39.9) Osteomyelitis Functional capacity: independent ambulation Social History Social History Household Members: None Alcohol intake: never Patient Tobacco Use Status: Current everyday Tobacco user Tobacco use type: Cigarette Smoked in Last 30 Days: Yes Patient Interested in Nicotine Replacement: No Patient Given Instructions on How to Stop Smoking: No Second Hand Smoke Exposure: No Use of substances other than those prescribed or required for medical reasons: No Currently Displaying Signs/Symptoms of Drug Intoxication Withdrawal: No Have you been hit, kicked, punched, or otherwise hurt by someone within the past year? If so, by whom?: No Do you feel safe in your current relationship?: No Is there a partner from a previous relationship who is making you feel unsafe now?: No [facility] Practices: adventism Advance Directives: No Advance Directives Information Provided: No Advance Directives Date on File: 11/15/21 Do you have thoughts of harming others: None Do you have a plan to hurt others: No Plan Recently lost weight without trying: No Eating poorly because of decreased appetite: No Nutrition Risks: No Nutritional Risk Poor oral hygiene: No service: No Current occupational status: disabled Meds Allergies Allergy/AdvReac Type Severity Reaction Status Date / Time No Known Allergies Allergy Verified 11/14/21 11:24 Active Medications: Current Medications Acetaminophen (Acetaminophen 325 Mg Tablet) 650 mg PO Q6H PRN PRN Reason: Pain, Mild (Pain Scale 1-3) Last Admin: 11/14/21 23:12 Dose: 650 mg Documented by: Amitriptyline HCl (Amitriptyline Hcl 25 Mg Tablet) 25 mg PO BEDTIME [facility] Last Admin: 11/14/21 20:12 Dose: 25 mg Documented by: Atorvastatin Calcium (Atorvastatin Calcium 40 Mg Tablet) 40 mg PO BEDTIME [facility] Last Admin: 11/14/21 20:12 Dose: 40 mg Documented by: Dextrose (Dextrose 50 % 25 Gm/50 Ml Vial) 25 gm IVPUSH Q15M PRN; Protocol PRN Reason: per Hypoglycemia Standing Ord. Enoxaparin Sodium (Enoxaparin Sodium 40 Mg/0.4 Ml Syringe) 40 mg SUBCUT Q24H [facility] Last Admin: 11/14/21 20:13 Dose: Not Given Documented by: Glucose (Glucose Gel 15 Gm Gel..Gram.) 15 gm PO Q15M PRN; Protocol PRN Reason: per Hypoglycemia Standing Ord. Piperacillin Sod/Tazobactam (Sod 3.375 gm/ Sodium Chloride) 50 mls @ 100 mls/hr IV Q6H [facility] Last Infusion: 11/15/21 14:16 Dose: Infused Documented by: Levofloxacin (Levaquin) 750 mg in 150 mls @ 100 mls/hr IV Q24H [facility] Last Infusion: 11/15/21 14:17 Dose: Infused Documented by: Insulin Glargine (Insulin Glargine,Hum.Rec.Anlog 100 Unit/Ml 10 Ml Vial) 8 unit SUBCUT BEDTIME [facility] Last Admin: 11/14/21 20:13 Dose: Not Given Documented by: Insulin Human Lispro (Insulin Lispro 100 Unit/Ml 3 Ml Vial) 0 unit SUBCUT QIDACHS [facility]; Protocol Last Admin: 11/15/21 11:46 Dose: Not Given Documented by: Lactic Acid (Ammonium Lactate 12 % Lotion 226 Gm Bottle) 1 appl TOPICAL BID [facility]; Protocol Montelukast Sodium (Montelukast Sodium 10 Mg Tablet) 10 mg PO BEDTIME [facility] Last Admin: 11/14/21 20:12 Dose: 10 mg Documented by: Non-Formulary Medication (Empagliflozin [Jardiance]) 1 tab PO DAILY [facility] Ondansetron HCl (Ondansetron Hcl 4 Mg/2 Ml Vial) 4 mg IVPUSH Q8H PRN PRN Reason: Nausea and Vomiting Oxycodone HCl (Oxycodone Hcl Immed Release 5 Mg Tablet) 5 mg PO Q6H PRN PRN Reason: Pain, Severe (Pain Scale 7-10) Last Admin: 11/15/21 12:54 Dose: 5 mg Documented by: Pharmacy Consult (Consult Rx Perform Med Rec) 1 each MISCELLANE ONCE PRN PRN Reason: Consult order Sodium Chloride (0.9 % Sodium Chloride Flush 3 Ml Syringe) 3 ml IVFLUSH QSHIFT [facility] Last Admin: 11/15/21 07:44 Dose: Not Given Documented by: Home Medications Medication Instructions Recorded Confirmed Last Taken Type amitriptyline 25 mg tablet 1 tab PO BEDTIME 11/14/21 11/14/21 11/13/21 History atorvastatin 40 mg tablet 1 tab PO BEDTIME 11/14/21 11/14/21 11/13/21 History dulaglutide 1.5 mg/0.5 mL 1.5 mg SUBCUT MO 11/14/21 11/14/21 11/14/21 History subcutaneous pen injector (Trulicity) empagliflozin 25 mg tablet 1 tab PO DAILY 11/14/21 11/14/21 11/13/21 History (Jardiance) metformin 1,000 mg tablet 1 tab PO BID 11/14/21 11/14/21 11/13/21 History montelukast 10 mg tablet 1 tab PO BEDTIME 11/14/21 11/14/21 11/13/21 History Physical Exam Vital Signs: Vital Signs: Last Vital Signs Temp 96.9 F 11/15/21 12:00 Pulse 87 11/15/21 12:00 Resp 19 11/15/21 12:00 BP 158/80 H 11/15/21 12:00 Pulse Ox 96 11/15/21 12:00 BMI result Body Mass Index 37.5 Const: General: comfortable and no acute distress Nutritional Appearance: obese Orientation/consciousness: patient oriented x3 Neck: Neck: Yes no lymphadenopathy Resp: Auscultation: clear to auscultation bilaterally Cardio: Rhythm: regular rhythm GI: Palpation (GI): Soft to palpation, nontender and no guarding Neuro: General: patient oriented x3 Extrem: Other: Plantar aspect right foot with the deep ulcer at the 1st metatarsal head area surrounded by thick callus, mild cellulitis of the some of the foot, no active drainage at this time Results Labs Result diagrams: 11/18/21 05:53 11/23/21 05:46 Labs: Abnormal lab results 11/14/21 11/14/21 11/14/21 Range/Units 15:52 15:52 15:52 RBC 5.93 H (4.60-5.80) X10*6/uL MPV 9.1 L (9.4-12.4) fL Lymph % (Auto) 17.9 L (20-40) % Abs Immat Gran (auto) 0.04 H (0.00-0.03) X10*3/uL ESR 28 H (0-15) MM/HR POC Glucose (60-115) mg/dL Random Glucose 131 H (60-115) mg/dL C-Reactive Protein 10.96 H (< or = 0.50) mg/dL Total Protein 6.3 L (6.5-8.0) g/dL 11/14/21 11/15/21 Range/Units 22:51 11:38 RBC (4.60-5.80) X10*6/uL MPV (9.4-12.4) fL Lymph % (Auto) (20-40) % Abs Immat Gran (auto) (0.00-0.03) X10*3/uL ESR (0-15) MM/HR POC Glucose 184 H 131 H (60-115) mg/dL Random Glucose (60-115) mg/dL C-Reactive Protein (< or = 0.50) mg/dL Total Protein (6.5-8.0) g/dL Short CBC 11/14/21 Range/Units 15:52 WBC 10.2 (4.8-10.8) X10*3/uL Hgb 17.4 (14.0-18.0) g/dl Hct 51.8 (42.0-52.0) % Plt Count 287 (160-400) X10*3/uL BMP 11/14/21 15:52 Sodium 139 Potassium 4.2 D Chloride 101 Carbon Dioxide 28 BUN 9 Creatinine 0.67 Calcium 9.2 D Liver Function 11/14/21 Range/Units 15:52 Total Bilirubin 0.4 (0.0-1.0) mg/dL AST 12 (5-37) U/L ALT 14 (0-40) U/L Alkaline Phosphatase 93 (39-117) U/L Albumin 3.6 (3.5-5.0) g/dL All other labs normal. Assessment and Plan (1) Diabetic foot ulcer: Status: Acute He has a plantar ulcer on the right foot. This is about 1 cm in diameter but seems to track deep into the soft tissue. I would recommend going ahead with an MRI to rule out osteomyelitis. I have changes dressings and wrapped the foot with Padmini roll. I explained to him that blood sugar control is very important. I will follow along while he is in the hospital. He has been started on antibiotics. I told him to not put weight on the area of the foot with ulcers so he may eventually need to have an offloading shoe. Procedures Date of Service Date of Service: 11/15/21
--- NOTE | 2021-11-15 15:17 | P.CNID_ITS ---
History of Present Illness Data of Consult Service Date: 11/15/21 Requesting physician: Stephanie De La Rosa Primary Care Provider: Unknown Physician HPI Reason for consult: right diabetic foot infection He presents to hospital with nonhealing right foot wound under great toe area,metatarsals. He has had wound for many months and was seeing Podiatry and getting debridements. He was sent to [facility] Care He has no fever or chills He has increased redness area last two days right foot Review of Systems Verdana 4l Review of Systems: Yes all other systems are reviewed and Verdana 4d are negative [facility] Past Medical History Medical History (Updated 12/01/21 @ 00:02 by Lisa Felipe) Cellulitis of right foot Diabetes mellitus Diabetic foot ulcer Hyperlipidemia Obesity (BMI 30-39.9) Osteomyelitis Functional capacity: independent ambulation Family History Family history: reviewed and not pertinent Social History Social History Household Members: None Alcohol intake: never Patient Tobacco Use Status: Current everyday Tobacco user Tobacco use type: Cigarette Second Hand Smoke Exposure: No Advance Directives Date on File: 11/15/21 service: No Current occupational status: disabled Meds Allergies Allergy/AdvReac Type Severity Reaction Status Date / Time No Known Allergies Allergy Verified 11/14/21 11:24 Active Medications: Current Medications Acetaminophen (Acetaminophen 325 Mg Tablet) 650 mg PO Q6H PRN PRN Reason: Pain, Mild (Pain Scale 1-3) Last Admin: 11/14/21 23:12 Dose: 650 mg Documented by: Amitriptyline HCl (Amitriptyline Hcl 25 Mg Tablet) 25 mg PO BEDTIME [facility] Last Admin: 11/14/21 20:12 Dose: 25 mg Documented by: Atorvastatin Calcium (Atorvastatin Calcium 40 Mg Tablet) 40 mg PO BEDTIME [facility] Last Admin: 11/14/21 20:12 Dose: 40 mg Documented by: Dextrose (Dextrose 50 % 25 Gm/50 Ml Vial) 25 gm IVPUSH Q15M PRN; Protocol PRN Reason: per Hypoglycemia Standing Ord. Enoxaparin Sodium (Enoxaparin Sodium 40 Mg/0.4 Ml Syringe) 40 mg SUBCUT Q24H [facility] Last Admin: 11/14/21 20:13 Dose: Not Given Documented by: Glucose (Glucose Gel 15 Gm Gel..Gram.) 15 gm PO Q15M PRN; Protocol PRN Reason: per Hypoglycemia Standing Ord. Piperacillin Sod/Tazobactam (Sod 3.375 gm/ Sodium Chloride) 50 mls @ 100 mls/hr IV Q6H [facility] Last Infusion: 11/15/21 14:16 Dose: Infused Documented by: Insulin Glargine (Insulin Glargine,Hum.Rec.Anlog 100 Unit/Ml 10 Ml Vial) 8 unit SUBCUT BEDTIME [facility] Last Admin: 11/14/21 20:13 Dose: Not Given Documented by: Insulin Human Lispro (Insulin Lispro 100 Unit/Ml 3 Ml Vial) 0 unit SUBCUT QIDACHS [facility]; Protocol Last Admin: 11/15/21 11:46 Dose: Not Given Documented by: Lactic Acid (Ammonium Lactate 12 % Lotion 226 Gm Bottle) 1 appl TOPICAL BID [facility]; Protocol Montelukast Sodium (Montelukast Sodium 10 Mg Tablet) 10 mg PO BEDTIME [facility] Last Admin: 11/14/21 20:12 Dose: 10 mg Documented by: Non-Formulary Medication (Empagliflozin [Jardiance]) 1 tab PO DAILY [facility] Ondansetron HCl (Ondansetron Hcl 4 Mg/2 Ml Vial) 4 mg IVPUSH Q8H PRN PRN Reason: Nausea and Vomiting Oxycodone HCl (Oxycodone Hcl Immed Release 5 Mg Tablet) 5 mg PO Q6H PRN PRN Reason: Pain, Severe (Pain Scale 7-10) Last Admin: 11/15/21 12:54 Dose: 5 mg Documented by: Pharmacy Consult (Consult Rx Perform Med Rec) 1 each MISCELLANE ONCE PRN PRN Reason: Consult order Sodium Chloride (0.9 % Sodium Chloride Flush 3 Ml Syringe) 3 ml IVFLUSH QSHIFT [facility] Last Admin: 11/15/21 07:44 Dose: Not Given Documented by: Home Medications Medication Instructions Recorded Confirmed Last Taken Type amitriptyline 25 1 tab PO BEDTIME 11/14/21 11/14/21 11/13/21 History mg tablet atorvastatin 40 1 tab PO BEDTIME 11/14/21 11/14/21 11/13/21 History mg tablet dulaglutide 1.5 1.5 mg SUBCUT [place] 11/14/21 11/14/21 11/14/21 History mg/0.5 mL subcutaneous pen injector (Trulicity) empagliflozin 25 1 tab PO DAILY 11/14/21 11/14/21 11/13/21 History mg tablet (Jardiance) metformin 1,000 1 tab PO BID 11/14/21 11/14/21 11/13/21 History mg tablet montelukast 10 mg 1 tab PO BEDTIME 11/14/21 11/14/21 11/13/21 History tablet Physical Exam Verdana 4l Vital Signs: Verdana 4d Verdana 4d Vital Signs: Verdana 4d Verdana 4Bd Last Vital Signs Verdana 4d Letter Of Credit Document Examiner New 4d Letter Of Credit Document Examiner New 4d Temp 96.9 F 11/15/21 12:00 Letter Of Credit Document Examiner New 4d Pulse 87 11/15/21 12:00 Letter Of Credit Document Examiner New 4d Resp 19 11/15/21 12:00 BP 158/80 H 11/15/21 12:00 Pulse Ox 96 11/15/21 12:00 BMI result Body Mass Index 37.5 Const: General: cooperative Orientation/consciousness: patient oriented x3 Eyes: General: appearance normal, both eyes and all related structures Pupils: Equal, round and reactive pupils present Resp: Effort & Inspection: normal respiratory effort Cardio: Rate: regular rate Rhythm: regular rhythm GI: Palpation (GI): Soft to palpation and nontender Skin: General skin exam: no rashes or lesions noted Neuro: General: patient oriented x3 Cranial nerves: Yes Equal, round and reactive pupils present Extrem: Other: right foot open area less than one cm neuropathy Results Labs CBC & Chem 7: 11/18/21 05:53 11/23/21 05:46 Labs: Short CBC 11/14/21 Range/Units 15:52 WBC 10.2 (4.8-10.8) X10*3/uL Hgb 17.4 (14.0-18.0) g/dl Hct 51.8 (42.0-52.0) % Plt Count 287 (160-400) X10*3/uL BMP 11/14/21 15:52 Sodium 139 Potassium 4.2 D Chloride 101 Carbon Dioxide 28 BUN 9 Creatinine 0.67 Calcium 9.2 D Liver Function 11/14/21 Range/Units 15:52 Total Bilirubin 0.4 (0.0-1.0) mg/dL AST 12 (5-37) U/L ALT 14 (0-40) U/L Alkaline Phosphatase 93 (39-117) U/L Albumin 3.6 (3.5-5.0) g/dL Microbiology Microbiology Results: Microbiology 11/14/21 16:25 Foot Right Gram Stain - Final 11/14/21 16:25 Foot Right Routine Culture - Preliminary Culture in progress. Assessment and Plan (1) Diabetes mellitus: (2) Cellulitis of right foot: Status: Acute He has cellulitis and Klebsiella,enterococcus and strep viridans in the past (3) Diabetic foot ulcer: Status: Acute He may have osteomyelitis He has no MRSA seen Plan Would give Zosyn alone Check MRI foot Possible oral Levaquin if no other organism seen
[2021-11-15 15:43] VITALS: BP 143/66; PULSE 83; RESP 16; TEMP 36.4; O2SAT 93
[2021-11-15 15:55] LABS: Glucose, Whole Blood 153 mg/dL (60-115)
[2021-11-15] MEDS: Insulin Lispro 100 UNIT/ML 3 ML VIAL SUBCUT ×2 (16:22→19:56)
[2021-11-15 19:29] VITALS: BP 160/86; PULSE 87; RESP 18; TEMP 36.8; O2SAT 90
[2021-11-15] MEDS: Amitriptyline HCl 25 MG TABLET PO (19:56)
[2021-11-15] MEDS: Ammonium Lactate 12 % Lotion 226 GM BOTTLE 1 APPL TOPICAL (19:56)
[2021-11-15] MEDS: Montelukast Sodium 10 MG TABLET PO (19:57)
[2021-11-15] MEDS: Atorvastatin Calcium 40 MG TABLET PO (19:57)
[2021-11-15] MEDS: 0.9 % Sodium Chloride Flush 3 ML SYRINGE IVFLUSH (19:59)
[2021-11-15 20:06] LABS: Glucose, Whole Blood 184 mg/dL (60-115)
[2021-11-15 23:29] VITALS: BP 152/82; PULSE 87; RESP 18; TEMP 36.8; O2SAT 90
[2021-11-16] MEDS: Piperacillin Sodium/Tazobactam 3.375 GM in 0.9 % Sodium Chloride 50 ML IV ×4 (00:04→18:43)
[2021-11-16 03:54] VITALS: BP 140/74; PULSE 89; RESP 18; TEMP 36.4; O2SAT 99
[2021-11-16 07:39] VITALS: BP 159/87; PULSE 86; RESP 19; TEMP 36.6; O2SAT 94
[2021-11-16 07:54] LABS: Glucose, Whole Blood 151 mg/dL (60-115)
[2021-11-16] MEDS: oxyCODONE HCl Immed Release 5 MG TABLET PO ×3 (08:13→21:00)
[2021-11-16] MEDS: Ammonium Lactate 12 % Lotion 226 GM BOTTLE 1 APPL TOPICAL ×2 (08:14→21:05)
[2021-11-16] MEDS: Insulin Lispro 100 UNIT/ML 3 ML VIAL SUBCUT ×3 (08:14→21:00)
[2021-11-16] MEDS: 0.9 % Sodium Chloride Flush 3 ML SYRINGE IVFLUSH ×3 (08:14→21:01)
[2021-11-16 11:37] VITALS: BP 135/71; PULSE 76; RESP 19; TEMP 36.2; O2SAT 95
[2021-11-16 11:45] LABS: Glucose, Whole Blood 149 mg/dL (60-115)
--- NOTE | 2021-11-16 14:44 | HO.PM.IMPN ---
Subjective Subjective Date of Service: 11/16/21 Interval History: Complaining of persistent foot pain, no fevers no chills overnight, schedule for MRI today. Review of Systems Review of Systems: Yes all other systems are reviewed and are negative Physical Exam Vital Signs: Vital Signs: Last Vital Signs Temp 97.2 F 11/16/21 11:37 Pulse 76 11/16/21 11:37 Resp 19 11/16/21 11:37 BP 135/71 11/16/21 11:37 Pulse Ox 95 11/16/21 11:37 BMI result Body Mass Index 37.5 General awake alert, in no acute distress.? Neck supple no JVD. CVS? regular rate rhythm, good peripheral pulses Respiratory lungs clear to auscultation, no respiratory distress, no wheeze, no rhonchi. Gastrointestinal abdomen soft, obese, nontender, bowel sounds audible, no guarding , no rigidity. Extremities dry scaly skin both lower extremities with discoloration, deep wound plantar surface right foot 1st metatarsal head, no drainage, decrease redness on dorsum of right foot , mild tenderness to palpation Neuro nonfocal ,speech clear. Skin no rash Psych appropriate affect Objective Data Active Medications Acetaminophen (Acetaminophen 325 Mg Tablet) 650 mg PO Q6H PRN PRN Reason: Pain, Mild (Pain Scale 1-3) Last Admin: 11/14/21 23:12 Dose: 650 mg Documented by: DARELL Amitriptyline HCl (Amitriptyline Hcl 25 Mg Tablet) 25 mg PO BEDTIME [facility] Last Admin: 11/15/21 19:56 Dose: 25 mg Documented by: RICCARDO Atorvastatin Calcium (Atorvastatin Calcium 40 Mg Tablet) 40 mg PO BEDTIME [facility] Last Admin: 11/15/21 19:57 Dose: 40 mg Documented by: RICCARDO Dextrose (Dextrose 50 % 25 Gm/50 Ml Vial) 25 gm IVPUSH Q15M PRN; Protocol PRN Reason: per Hypoglycemia Standing Ord. Enoxaparin Sodium (Enoxaparin Sodium 40 Mg/0.4 Ml Syringe) 40 mg SUBCUT Q24H [facility] Last Admin: 11/15/21 19:55 Dose: Not Given Documented by: RICCARDO Non-Admin Reason: Patient Refused Glucose (Glucose Gel 15 Gm Gel..Gram.) 15 gm PO Q15M PRN; Protocol PRN Reason: per Hypoglycemia Standing Ord. Piperacillin Sod/Tazobactam (Sod 3.375 gm/ Sodium Chloride) 50 mls @ 100 mls/hr IV Q6H [facility] Last Infusion: 11/16/21 06:34 Dose: 0 mls/hr Documented by: RICCARDO Insulin Glargine (Insulin Glargine,Hum.Rec.Anlog 100 Unit/Ml 10 Ml Vial) 8 unit SUBCUT BEDTIME [facility] Last Admin: 11/15/21 19:57 Dose: Not Given Documented by: RICCARDO Non-Admin Reason: No Insulin Coverage Insulin Human Lispro (Insulin Lispro 100 Unit/Ml 3 Ml Vial) 0 unit SUBCUT QIDACHS [facility]; Protocol Last Admin: 11/16/21 11:48 Dose: Not Given Documented by: ANKUR Non-Admin Reason: No Insulin Coverage Lactic Acid (Ammonium Lactate 12 % Lotion 226 Gm Bottle) 1 appl TOPICAL BID [facility]; Protocol Last Admin: 11/16/21 08:14 Dose: 1 appl Documented by: ANKUR Montelukast Sodium (Montelukast Sodium 10 Mg Tablet) 10 mg PO BEDTIME [facility] Last Admin: 11/15/21 19:57 Dose: 10 mg Documented by: RICCARDO Ondansetron HCl (Ondansetron Hcl 4 Mg/2 Ml Vial) 4 mg IVPUSH Q8H PRN PRN Reason: Nausea and Vomiting Oxycodone HCl (Oxycodone Hcl Immed Release 5 Mg Tablet) 5 mg PO Q6H PRN PRN Reason: Pain, Severe (Pain Scale 7-10) Last Admin: 11/16/21 08:13 Dose: 5 mg Documented by: ANKUR Pharmacy Consult (Consult Rx Perform Med Rec) 1 each MISCELLANE ONCE PRN PRN Reason: Consult order Sodium Chloride (0.9 % Sodium Chloride Flush 3 Ml Syringe) 3 ml IVFLUSH QSHIFT [facility] Last Admin: 11/16/21 08:14 Dose: 3 ml Documented by: ANKUR Labs CBC & Chem 7: 11/14/21 15:52 11/14/21 15:52 Labs: Laboratory Results - last 24 hr 11/15/21 11/15/21 11/16/21 15:47 19:45 07:41 POC Glucose 153 H 184 H 151 H 11/16/21 11:35 POC Glucose 149 H Microbiology Microbiology Results: Microbiology 11/14/21 16:25 Gram Stain - Final Foot Right Routine Culture - Preliminary Enterococcus/Streptococcus sp 11/14/21 16:11 Blood Culture - Preliminary Blood - Venous No growth after 24 hours. 11/14/21 15:52 Blood Culture - Preliminary Blood - Venous No growth after 24 hours. 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 Diabetic foot ulcer/cellulitis of right foot continue IV Zosyn day 3,? blood cultures x 2 negative times 24, right foot culture grew Streptococcus/Enterococcus strict blood sugar control, oxycodone as needed for pain Seen by Dr. Henderson no debridement needed, id recommended IV Zosyn and oral Levaquin if no other organisms seen MRI foot ordered Daily dressing change as per wound nurse No evidence of sepsis Diabetes mellitus with uncontrolled blood sugar Blood sugars stable 151 fasting, Continue diabetic diet, patient took Trulicity on 11/13/20, continue Humalog sliding scale, will hold Jardiance and metformin Strongly recommend compliance with home medication and diet since hemoglobin A1c 13.1 Hyperlipidemia Continue statin Tobacco use disorder Counseling done patient declined nicotine Obesity Recommend weight loss and low-calorie diet DVT prophylaxis with Lovenox subcu Code status full code Quality Stroke Does the patient have a stroke diagnosis?: No VTE Prior VTE?: No VTE Risk Level:: Medical - moderate - high VTE Device Contraindication: Treatment Not Indicated VTE Drug Contraindication: N/A - Med Ordered
[2021-11-16 16:00] VITALS: BP 127/76; PULSE 78; RESP 18; O2SAT 92
--- NOTE | 2021-11-16 16:21 | MHC.CM.PN ---
NURSE CARE MANGER NOTE ELECTRONIC MEDICAL RECORD REVIEWED ALOMNG WITH CASE DISCUSSED WITH STAFF NURSE AND ON MULTIPLE DISCIPLAINEY ROUNDSW PATIENT IS ACTIVE LIBVES ALONE , HE WAS SEEEN BY [facility] PCP IN [facility] [address] SIMMONS 3 MONTHS AGO FOR PHYSICAL S HE WAS SWITCHING TO THE [place] LOCATION IN [place] AND HASD APPT TO BE SEEN WITH \A PCP BUT WAS ADMITTED TO THE [facility],ENT OFFICE HAS MADE APPOINTMENT FOR [facility] TO BE SEEN AT [facility] BY MELINDA FORTE PATIENT HAS PER DOCUEMNTATION BY WOUND NURSE (Skin/wound assessment completed today. Patient has a diabetic ulcer to right plantar foot measuring 1.4 x 1.4 x 1.6 with tunneling at 6:00 O'clock at 7cm. Irrigated with normal saline, then strip of silver alginate tucked into wound covered with non woven gauze and roll gauze. No other skin issues noted at this time.) HE WILL NEED VNA AT DISCHARGE REFERRALS WENT OUT DISCHARGE PLAN VNA REFERRALS SENT OUT ([facility] AND [facility] FOR NURSING - WOUND ASSESSMENT AND DRESSING CHANGES MAY POSSIBLY NEED PIC LINE AND IV ABX TRANSPORTASTION FRIEND [place] FORTE
[2021-11-16 16:31] LABS: Glucose, Whole Blood 189 mg/dL (60-115)
[2021-11-16 20:00] VITALS: BP 160/83; PULSE 81; RESP 18; TEMP 37; O2SAT 95
[2021-11-16 20:10] LABS: Glucose, Whole Blood 229 mg/dL (60-115)
[2021-11-16] MEDS: Amitriptyline HCl 25 MG TABLET PO (20:59)
[2021-11-16] MEDS: Atorvastatin Calcium 40 MG TABLET PO (21:00)
[2021-11-16] MEDS: Montelukast Sodium 10 MG TABLET PO (21:00)
[2021-11-16 23:27] VITALS: BP 143/76; PULSE 87; RESP 18; TEMP 37; O2SAT 92
[2021-11-17] MEDS: Piperacillin Sodium/Tazobactam 3.375 GM in 0.9 % Sodium Chloride 50 ML IV ×4 (01:09→18:19)
[2021-11-17 03:14] VITALS: BP 142/83; PULSE 88; RESP 18; TEMP 37.2; O2SAT 91
[2021-11-17] MEDS: 0.9 % Sodium Chloride Flush 3 ML SYRINGE IVFLUSH ×2 (07:12→16:52)
[2021-11-17] MEDS: Ammonium Lactate 12 % Lotion 226 GM BOTTLE 1 APPL TOPICAL ×2 (07:12→20:19)
[2021-11-17] MEDS: oxyCODONE HCl Immed Release 5 MG TABLET PO (07:12)
[2021-11-17 07:37] VITALS: BP 141/68; PULSE 77; RESP 17; TEMP 36.4; O2SAT 94
[2021-11-17 07:41] LABS: Glucose, Whole Blood 168 mg/dL (60-115)
[2021-11-17] MEDS: Insulin Lispro 100 UNIT/ML 3 ML VIAL SUBCUT ×4 (07:54→20:10)
[2021-11-17 11:13] VITALS: BP 142/78; PULSE 75; RESP 18; TEMP 36.3; O2SAT 94
[2021-11-17 11:46] LABS: Glucose, Whole Blood 213 mg/dL (60-115)
--- NOTE | 2021-11-17 12:39 | HO.PM.IMPN ---
Subjective Subjective Date of Service: 11/17/21 Interval History: Complaining of right foot pain at site of calluses, denies fever chills overnight, no nausea no vomiting tolerating diet no other acute issues overnight. Review of Systems Review of Systems: Yes all other systems are reviewed and are negative Physical Exam Vital Signs: Vital Signs: Last Vital Signs Temp 97.4 F 11/17/21 11:13 Pulse 75 11/17/21 11:13 Resp 18 11/17/21 11:13 BP 142/78 H 11/17/21 11:13 Pulse Ox 94 11/17/21 11:13 BMI result Body Mass Index 37.5 General awake alert, in no acute distress.? Neck supple no JVD. CVS? regular rate rhythm, good peripheral pulses Respiratory lungs clear to auscultation, no respiratory distress, no wheeze, no rhonchi. Gastrointestinal abdomen soft, obese, nontender, bowel sounds audible, no guarding , no rigidity. Extremities dry scaly skin both lower extremities,deep wound plantar surface right foot 1st metatarsal head, decrease redness on dorsum of right foot dry sterile dressing in place. Neuro nonfocal ,speech clear. Psych appropriate affect Objective Data Active Medications Acetaminophen (Acetaminophen 325 Mg Tablet) 650 mg PO Q6H PRN PRN Reason: Pain, Mild (Pain Scale 1-3) Last Admin: 11/14/21 23:12 Dose: 650 mg Documented by: DARELL Amitriptyline HCl (Amitriptyline Hcl 25 Mg Tablet) 25 mg PO BEDTIME [facility] Last Admin: 11/16/21 20:59 Dose: 25 mg Documented by: RICCARDO Atorvastatin Calcium (Atorvastatin Calcium 40 Mg Tablet) 40 mg PO BEDTIME [facility] Last Admin: 11/16/21 21:00 Dose: 40 mg Documented by: RICCARDO Dextrose (Dextrose 50 % 25 Gm/50 Ml Vial) 25 gm IVPUSH Q15M PRN; Protocol PRN Reason: per Hypoglycemia Standing Ord. Enoxaparin Sodium (Enoxaparin Sodium 40 Mg/0.4 Ml Syringe) 40 mg SUBCUT Q24H [facility] Last Admin: 11/16/21 20:59 Dose: Not Given Documented by: RICCARDO Non-Admin Reason: Patient Refused Glucose (Glucose Gel 15 Gm Gel..Gram.) 15 gm PO Q15M PRN; Protocol PRN Reason: per Hypoglycemia Standing Ord. Piperacillin Sod/Tazobactam (Sod 3.375 gm/ Sodium Chloride) 50 mls @ 100 mls/hr IV Q6H [facility] Last Admin: 11/17/21 11:51 Dose: 100 mls/hr Documented by: FLORENCE Insulin Glargine (Insulin Glargine,Hum.Rec.Anlog 100 Unit/Ml 10 Ml Vial) 8 unit SUBCUT BEDTIME [facility] Last Admin: 11/16/21 21:03 Dose: Not Given Documented by: RICCARDO Non-Admin Reason: Patient Refused Insulin Human Lispro (Insulin Lispro 100 Unit/Ml 3 Ml Vial) 0 unit SUBCUT QIDACHS [facility]; Protocol Last Admin: 11/17/21 11:51 Dose: 4 unit Documented by: FLORENCE Lactic Acid (Ammonium Lactate 12 % Lotion 226 Gm Bottle) 1 appl TOPICAL BID [facility]; Protocol Last Admin: 11/17/21 07:12 Dose: 1 appl Documented by: JEROD Montelukast Sodium (Montelukast Sodium 10 Mg Tablet) 10 mg PO BEDTIME [facility] Last Admin: 11/16/21 21:00 Dose: 10 mg Documented by: RICCARDO Ondansetron HCl (Ondansetron Hcl 4 Mg/2 Ml Vial) 4 mg IVPUSH Q8H PRN PRN Reason: Nausea and Vomiting Oxycodone HCl (Oxycodone Hcl Immed Release 5 Mg Tablet) 5 mg PO Q6H PRN PRN Reason: Pain, Severe (Pain Scale 7-10) Last Admin: 11/17/21 07:12 Dose: 5 mg Documented by: JEROD Pharmacy Consult (Consult Rx Perform Med Rec) 1 each MISCELLANE ONCE PRN PRN Reason: Consult order Sodium Chloride (0.9 % Sodium Chloride Flush 3 Ml Syringe) 3 ml IVFLUSH QSHIFT [facility] Last Admin: 11/17/21 07:12 Dose: 3 ml Documented by: JEROD Labs CBC & Chem 7: 11/14/21 15:52 11/14/21 15:52 Labs: Laboratory Results - last 24 hr 11/16/21 11/16/21 11/17/21 16:26 20:02 07:35 POC Glucose 189 H 229 H 168 H 11/17/21 11:05 POC Glucose 213 H Microbiology Microbiology Results: Microbiology 11/14/21 16:25 Gram Stain - Final Foot Right Routine Culture - Final Enterococcus faecalis 11/14/21 16:11 Blood Culture - Preliminary Blood - Venous No growth after 48 hours. 11/14/21 15:52 Blood Culture - Preliminary Blood - Venous No growth after 48 hours. 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 Diabetic foot ulcer/cellulitis of right foot on IV Zosyn day 4,? blood cultures x 2 negative times 48, right foot wound culture grew Streptococcus/Enterococcus MRI foot showed cellulitis and abscess extending dorsally between the base of 1st and 2nd phalanges, acute osteomyelitis also noted Will discuss further management with General surgery Will maintain good blood sugar control, oxycodone as needed for pain Daily dressing change as per wound nurse No evidence of sepsis Will discuss antibiotic choice in treatment with ID Diabetes mellitus with uncontrolled blood sugar Blood sugars elevated, Continue diabetic diet, patient took Trulicity on 11/13/20, Will continue Lantus and adjust Humalog sliding scale, will hold Jardiance and metformin Strongly recommend compliance with home medication and diet since hemoglobin A1c 13.1 Hyperlipidemia Continue statin Tobacco use disorder Counseling done patient declined nicotine Obesity Recommend weight loss and low-calorie diet DVT prophylaxis with Lovenox subcu Code status full code Quality Stroke Does the patient have a stroke diagnosis?: No VTE Prior VTE?: No VTE Risk Level:: Medical - moderate - high VTE Device Contraindication: Treatment Not Indicated VTE Drug Contraindication: N/A - Med Ordered
--- NOTE | 2021-11-17 12:59 | P.PNGS_ITS ---
Subjective Subjective Date of Service: 11/17/21 Interval history: no new complaints foot feels better Physical Exam Vital Signs: Vital Signs: Last Vital Signs Temp 97.4 F 11/17/21 11:13 Pulse 75 11/17/21 11:13 Resp 18 11/17/21 11:13 BP 142/78 H 11/17/21 11:13 Pulse Ox 94 11/17/21 11:13 BMI result Body Mass Index 37.5 Const: General: comfortable and no acute distress Resp: Effort & Inspection: normal respiratory effort GI: Palpation (GI): Soft to palpation and nontender Extrem: Other: right foot with deep ulcer, tracking into the soft tissue, purulent drainage seen when area around the forefoot is squeezed, edema much improved, no cellulitis Objective Data Active Medications Acetaminophen (Acetaminophen 325 Mg Tablet) 650 mg PO Q6H PRN PRN Reason: Pain, Mild (Pain Scale 1-3) Last Admin: 11/14/21 23:12 Dose: 650 mg Documented by: DARELL Amitriptyline HCl (Amitriptyline Hcl 25 Mg Tablet) 25 mg PO BEDTIME [facility] Last Admin: 11/16/21 20:59 Dose: 25 mg Documented by: RICCARDO Atorvastatin Calcium (Atorvastatin Calcium 40 Mg Tablet) 40 mg PO BEDTIME [facility] Last Admin: 11/16/21 21:00 Dose: 40 mg Documented by: RICCARDO Dextrose (Dextrose 50 % 25 Gm/50 Ml Vial) 25 gm IVPUSH Q15M PRN; Protocol PRN Reason: per Hypoglycemia Standing Ord. Enoxaparin Sodium (Enoxaparin Sodium 40 Mg/0.4 Ml Syringe) 40 mg SUBCUT Q24H [facility] Last Admin: 11/16/21 20:59 Dose: Not Given Documented by: RICCARDO Non-Admin Reason: Patient Refused Glucose (Glucose Gel 15 Gm Gel..Gram.) 15 gm PO Q15M PRN; Protocol PRN Reason: per Hypoglycemia Standing Ord. Piperacillin Sod/Tazobactam (Sod 3.375 gm/ Sodium Chloride) 50 mls @ 100 mls/hr IV Q6H [facility] Last Infusion: 11/17/21 12:21 Dose: 0 mls/hr Documented by: FLORENCE Insulin Glargine (Insulin Glargine,Hum.Rec.Anlog 100 Unit/Ml 10 Ml Vial) 8 unit SUBCUT BEDTIME [facility] Last Admin: 11/16/21 21:03 Dose: Not Given Documented by: RICCARDO Non-Admin Reason: Patient Refused Insulin Human Lispro (Insulin Lispro 100 Unit/Ml 3 Ml Vial) 0 unit SUBCUT QIDACHS [facility]; Protocol Last Admin: 11/17/21 11:51 Dose: 4 unit Documented by: FLORENCE Lactic Acid (Ammonium Lactate 12 % Lotion 226 Gm Bottle) 1 appl TOPICAL BID [facility]; Protocol Last Admin: 11/17/21 07:12 Dose: 1 appl Documented by: JEROD Montelukast Sodium (Montelukast Sodium 10 Mg Tablet) 10 mg PO BEDTIME [facility] Last Admin: 11/16/21 21:00 Dose: 10 mg Documented by: RICCARDO Ondansetron HCl (Ondansetron Hcl 4 Mg/2 Ml Vial) 4 mg IVPUSH Q8H PRN PRN Reason: Nausea and Vomiting Oxycodone HCl (Oxycodone Hcl Immed Release 5 Mg Tablet) 5 mg PO Q6H PRN PRN Reason: Pain, Severe (Pain Scale 7-10) Last Admin: 11/17/21 07:12 Dose: 5 mg Documented by: JEROD Pharmacy Consult (Consult Rx Perform Med Rec) 1 each MISCELLANE ONCE PRN PRN Reason: Consult order Sodium Chloride (0.9 % Sodium Chloride Flush 3 Ml Syringe) 3 ml IVFLUSH QSHIFT [facility] Last Admin: 11/17/21 07:12 Dose: 3 ml Documented by: JEROD Labs CBC & Chem 7: 11/14/21 15:52 11/14/21 15:52 Labs: Laboratory Results - last 24 hr 11/16/21 11/16/21 11/17/21 16:26 20:02 07:35 POC Glucose 189 H 229 H 168 H 11/17/21 11:05 POC Glucose 213 H Microbiology Microbiology Results: Microbiology 11/14/21 16:25 Gram Stain - Final Foot Right Routine Culture - Final Enterococcus faecalis 11/14/21 16:11 Blood Culture - Preliminary Blood - Venous No growth after 48 hours. 11/14/21 15:52 Blood Culture - Preliminary Blood - Venous No growth after 48 hours. Procedures Date of Service Date of Service: 11/17/21 Progress Note: A&P Assessment and plan (1) Osteomyelitis: Status: Acute Assessment and Plan: MRI reviewed - suggest osteomyelitis of the sesamoids, with with between the 1st and 2nd metatarsal consistent with an abscess, connecting with insert abscess is already freely draining for the ulcer furthermore edema and redness have improved significantly will not do additional I&D as it is already draining freely I changes dressings, applied alginate packing wrapped the foot in Padmini roll dressing changes daily no weight-bearing long-term IV antibiotics - patient wants to save the toe Fall Risk Details Current Medications: Current Medications Acetaminophen (Acetaminophen 325 Mg Tablet) 650 mg PO Q6H PRN PRN Reason: Pain, Mild (Pain Scale 1-3) Last Admin: 11/14/21 23:12 Dose: 650 mg Documented by: Amitriptyline HCl (Amitriptyline Hcl 25 Mg Tablet) 25 mg PO BEDTIME [facility] Last Admin: 11/16/21 20:59 Dose: 25 mg Documented by: Atorvastatin Calcium (Atorvastatin Calcium 40 Mg Tablet) 40 mg PO BEDTIME [facility] Last Admin: 11/16/21 21:00 Dose: 40 mg Documented by: Dextrose (Dextrose 50 % 25 Gm/50 Ml Vial) 25 gm IVPUSH Q15M PRN; Protocol PRN Reason: per Hypoglycemia Standing Ord. Enoxaparin Sodium (Enoxaparin Sodium 40 Mg/0.4 Ml Syringe) 40 mg SUBCUT Q24H [facility] Last Admin: 11/16/21 20:59 Dose: Not Given Documented by: Glucose (Glucose Gel 15 Gm Gel..Gram.) 15 gm PO Q15M PRN; Protocol PRN Reason: per Hypoglycemia Standing Ord. Piperacillin Sod/Tazobactam (Sod 3.375 gm/ Sodium Chloride) 50 mls @ 100 mls/hr IV Q6H [facility] Last Infusion: 11/17/21 12:21 Dose: Infused Documented by: Insulin Glargine (Insulin Glargine,Hum.Rec.Anlog 100 Unit/Ml 10 Ml Vial) 8 unit SUBCUT BEDTIME [facility] Last Admin: 11/16/21 21:03 Dose: Not Given Documented by: Insulin Human Lispro (Insulin Lispro 100 Unit/Ml 3 Ml Vial) 0 unit SUBCUT QIDACHS [facility]; Protocol Last Admin: 11/17/21 11:51 Dose: 4 unit Documented by: Lactic Acid (Ammonium Lactate 12 % Lotion 226 Gm Bottle) 1 appl TOPICAL BID [facility]; Protocol Last Admin: 11/17/21 07:12 Dose: 1 appl Documented by: Montelukast Sodium (Montelukast Sodium 10 Mg Tablet) 10 mg PO BEDTIME [facility] Last Admin: 11/16/21 21:00 Dose: 10 mg Documented by: Ondansetron HCl (Ondansetron Hcl 4 Mg/2 Ml Vial) 4 mg IVPUSH Q8H PRN PRN Reason: Nausea and Vomiting Oxycodone HCl (Oxycodone Hcl Immed Release 5 Mg Tablet) 5 mg PO Q6H PRN PRN Reason: Pain, Severe (Pain Scale 7-10) Last Admin: 11/17/21 07:12 Dose: 5 mg Documented by: Pharmacy Consult (Consult Rx Perform Med Rec) 1 each MISCELLANE ONCE PRN PRN Reason: Consult order Sodium Chloride (0.9 % Sodium Chloride Flush 3 Ml Syringe) 3 ml IVFLUSH [facility] Last Admin: 11/17/21 07:12 Dose: 3 ml Documented by: Time Spent With Patient Time: Total time spent is greater than 50% in coordination of care (as documented) at patient's floor/unit and/or counseling patient: Time with patient: 15 - 24 minutes Quality Stroke Does the patient have a stroke diagnosis?: No VTE Prior VTE?: No VTE Risk Level:: Medical - moderate - high VTE Device Contraindication: Treatment Not Indicated VTE Drug Contraindication: N/A - Med Ordered
[2021-11-17 16:00] VITALS: BP 140/72; PULSE 80; RESP 18; TEMP 36.1; O2SAT 95
--- NOTE | 2021-11-17 16:23 | P.PICC_ITS ---
PICC Line Insertion NPICC Diagnosis: OSTEOMYELITIS Indication: SNF IV ANTIBIOTICS Pertinent Labs: REVIEWED Technique: Following informed consent including risks, benefits and alternatives and using sterile technique including cap and mask, sterile gown, glove and drape, the RIGHT arm was prepped and draped in the usual sterile fashion of full barrier technique with CHG. Following completion of [place] Protocol the skin and soft tissues were anesthetized with 1% Lidocaine plain. Using ultrasound guidance, CEPHALIC vein access was obtained IN SINGLE ATTEMPT BY THIS RN. Over an 0.018 wire through peel-away sheath, a PASV, 5-ALGERIAN, TRIPLE LUMEN PICC line was positioned. Catheter length is 41 CM internal length, 1 CM external length, for a total trimmed length of 42 CM. The procedure was performed in S-272. Tip verification was performed by Michael Lama with Sumit 3CG. Tip located in SVC. Ultrasound was used to document vein patency and for needle entry. A formal ultrasound picture and cardiac rhythm strip was recorded. [employer] has released the line for use and it is currently dressed with a StatLock, Tegaderm, and CHG disc. Verification has been performed for blood return and line patency. Arm Circumference: 34 CM Equipment: Apparent POWERPICC SOLO Catheter Type: 5-ALGERIAN, PASV, TRIPLE LUMEN Lot #: [id number]
[2021-11-17] MEDS: Acetaminophen 325 MG TABLET 650 MG PO (16:40)
[2021-11-17 16:49] LABS: Glucose, Whole Blood 185 mg/dL (60-115)
--- NOTE | 2021-11-17 18:25 | PC.NURSE ---
Pt returned to unit with a PICC line at 4:20pm. Pt has a PICC line in his right upper arm with 3 ports. Two ports 16.5 cm long and middle port is 19cm long. Dressing CDI.
[2021-11-17 19:10] VITALS: BP 137/64; PULSE 76; RESP 18; TEMP 36.8; O2SAT 90
[2021-11-17 19:57] LABS: Glucose, Whole Blood 221 mg/dL (60-115)
[2021-11-17] MEDS: Montelukast Sodium 10 MG TABLET PO (20:09)
[2021-11-17] MEDS: Amitriptyline HCl 25 MG TABLET PO (20:09)
[2021-11-17] MEDS: Atorvastatin Calcium 40 MG TABLET PO (20:09)
[2021-11-17] MEDS: 0.9 % Sodium Chloride Flush 10 ML SYRINGE 5 ML IVFLUSH (20:28)
--- NOTE | 2021-11-17 22:00 | PC.NURSE ---
Patient continues to refuse subcut lovenox, patient educated on importance of medication.
[2021-11-18] VITALS (7 sets, daily range): BP systolic 108–142; BP diastolic 59–77; PULSE 69–98; RESP 16–20; TEMP 36.1–36.8; O2SAT 93–98
[2021-11-18] MEDS: oxyCODONE HCl Immed Release 5 MG TABLET PO ×3 (00:03→21:29)
[2021-11-18] MEDS: Piperacillin Sodium/Tazobactam 3.375 GM in 0.9 % Sodium Chloride 50 ML IV ×2 (00:05→06:16)
[2021-11-18] MEDS: 0.9 % Sodium Chloride Flush 3 ML SYRINGE IVFLUSH ×3 (00:05→15:49)
[2021-11-18 06:07] LABS: Hematocrit 51.8 % (42.0-52.0); Hemoglobin 17.2 g/dl (14.0-18.0); Mean Corpuscular HGB Conc 33.2 g/dl (31.0-36.0); Mean Corpuscular Hemoglobin 29.6 pg (27.0-33.0); Mean Platelet Volume 8.9 fL (9.4-12.4); Platelet Count 272 X10*3/uL (160-400); Red Blood Count 5.82 X10*6/uL (4.60-5.80); Red Cell Distribution Width 12.2 % (11.0-16.0)
[2021-11-18 06:12] LABS: Prothrombin Time 11.1 SEC (9.9-13.0)
[2021-11-18 06:22] LABS: Anion Gap 13 (12-20); Blood Urea Nitrogen 8 mg/dL (9-16); Calcium 8.8 mg/dL (8.4-10.2); Carbon Dioxide 28 mmol/L (22-29); Chloride 101 mmol/L (96-108); Estimated Glomerular Filt Rate > 60; Glucose Random 229 mg/dL (60-115); Potassium 4.2 mmol/L (3.3-5.1); Sodium 138 mmol/L (135-145)
[2021-11-18 08:10] LABS: Glucose, Whole Blood 224 mg/dL (60-115)
[2021-11-18] MEDS: Insulin Lispro 100 UNIT/ML 3 ML VIAL SUBCUT ×4 (08:14→21:29)
[2021-11-18] MEDS: 0.9 % Sodium Chloride Flush 10 ML SYRINGE 5 ML IVFLUSH ×3 (08:15→21:30)
[2021-11-18] MEDS: Ammonium Lactate 12 % Lotion 226 GM BOTTLE 1 APPL TOPICAL ×2 (08:19→21:30)
[2021-11-18 11:42] LABS: Glucose, Whole Blood 242 mg/dL (60-115)
[2021-11-18 12:04] LABS: HIV AB/AG Nonreactive (Nonreactive); HIV Num 1 0.08 S/CO (0.00-0.99); ~Hepatitis B Surface Antibody NONREACTIVE (Nonreactive)
[2021-11-18 12:12] LABS: HBc Num1 0.12 S/CO (0.00-0.79); HBsAGNum1 0.19 S/CO (0.00-0.99); Hepatitis B Core Antibody Nonreactive (Nonreactive); Hepatitis B Surface Antigen Negative (Negative); ~HepC Num1 0.15 S/CO (0.00-0.79)
[2021-11-18 12:19] LABS: Hepatitis C Ab Exposure Source NonReactive (Nonreactive)
[2021-11-18] MEDS: vancomycin HCL 1,500 MG in 0.9 % Sodium Chloride 500 ML 250 MG IV (12:31)
--- NOTE | 2021-11-18 13:58 | MHC.CM.PN ---
UNABLE TO SECURE [facility]NA SERVICES. NO PCP AND NO OFFERS FOR HOME CARE IN [facility] PATIENT DOES NOT WANT REHAB AND IT WAS EXPLAINED THAT THIS IS THE ONLY OPTION, PICC IS PLACED REFERRALS PLACED TO [facility] LOCATIONS IN EVENT THAT MD CAN CONVINCE PATIENT TO ACCEPT A REHAB BED IF OFFERED. PATIENT VACCINATED AGAINST COVID-19 WITH MODERNA 03/13/21 AND 04/12/21
--- NOTE | 2021-11-18 14:36 | P.PNIM_ITS ---
Subjective Subjective Date of Service: 11/18/21 Interval History: Noted to have elevated blood sugars greater than 200 this morning, denies fever chills, less foot pain no other acute issues overnight. Physical Exam Vital Signs: Vital Signs: Last Vital Signs Temp 98.3 F 11/18/21 12:00 Pulse 98 11/18/21 12:00 Resp 20 11/18/21 12:00 BP 117/69 11/18/21 12:00 Pulse Ox 98 11/18/21 12:00 BMI result Body Mass Index 37.5 General awake alert, no acute distress.? Neck supple no JVD. CVS? regular rate rhythm, good peripheral pulses Respiratory lungs clear to auscultation, no respiratory distress, no wheeze, no rhonchi. Gastrointestinal abdomen soft, obese, nontender, bowel sounds audible, no guarding , no rigidity. Extremities dry scaly skin both lower extremities,deep wound plantar surface right foot 1st metatarsal head, decrease redness on dorsum of right foot dry sterile dressing in place. No drainage noted Neuro nonfocal ,speech clear. Psych appropriate affect Objective Data Active Medications Acetaminophen (Acetaminophen 325 Mg Tablet) 650 mg PO Q6H PRN PRN Reason: Pain, Mild (Pain Scale 1-3) Last Admin: 11/17/21 16:40 Dose: 650 mg Documented by: FLORENCE Amitriptyline HCl (Amitriptyline Hcl 25 Mg Tablet) 25 mg PO BEDTIME [facility] Last Admin: 11/17/21 20:09 Dose: 25 mg Documented by: NORMA Atorvastatin Calcium (Atorvastatin Calcium 40 Mg Tablet) 40 mg PO BEDTIME [facility] Last Admin: 11/17/21 20:09 Dose: 40 mg Documented by: NORMA Dextrose (Dextrose 50 % 25 Gm/50 Ml Vial) 25 gm IVPUSH Q15M PRN; Protocol PRN Reason: per Hypoglycemia Standing Ord. Enoxaparin Sodium (Enoxaparin Sodium 40 Mg/0.4 Ml Syringe) 40 mg SUBCUT Q24H [facility] Last Admin: 11/17/21 20:17 Dose: Not Given Documented by: NORMA Non-Admin Reason: Patient Refused Glucose (Glucose Gel 15 Gm Gel..Gram.) 15 gm PO Q15M PRN; Protocol PRN Reason: per Hypoglycemia Standing Ord. Vancomycin HCl 1,500 mg/ (Sodium Chloride) 500 mls @ 250 mls/hr IV Q12H [facility] Last Infusion: 11/18/21 14:21 Dose: 0 mls/hr Documented by: TYBURJuan A Insulin Glargine (Insulin Glargine,Hum.Rec.Anlog 100 Unit/Ml 10 Ml Vial) 12 unit SUBCUT BEDTIME [facility] Insulin Human Lispro (Insulin Lispro 100 Unit/Ml 3 Ml Vial) 0 unit SUBCUT QIDACHS [facility]; Protocol Last Admin: 11/18/21 12:31 Dose: 6 unit Documented by: NORAH Lactic Acid (Ammonium Lactate 12 % Lotion 226 Gm Bottle) 1 appl TOPICAL BID [facility]; Protocol Last Admin: 11/18/21 08:19 Dose: 1 appl Documented by: NORAH Montelukast Sodium (Montelukast Sodium 10 Mg Tablet) 10 mg PO BEDTIME [facility] Last Admin: 11/17/21 20:09 Dose: 10 mg Documented by: NORMA Ondansetron HCl (Ondansetron Hcl 4 Mg/2 Ml Vial) 4 mg IVPUSH Q8H PRN PRN Reason: Nausea and Vomiting Oxycodone HCl (Oxycodone Hcl Immed Release 5 Mg Tablet) 5 mg PO Q6H PRN PRN Reason: Pain, Severe (Pain Scale 7-10) Last Admin: 11/18/21 06:23 Dose: 5 mg Documented by: JOSELINE Pharmacy Consult (Consult Rx Perform Med Rec) 1 each MISCELLANE ONCE PRN PRN Reason: Consult order Pharmacy Consult (Consult Rx Vancomycin Dosing) 1 each MISCELLANE DAILY PRN PRN Reason: Consult order Sodium Chloride (0.9 % Sodium Chloride Flush 3 Ml Syringe) 3 ml IVFLUSH QSHIFT [facility] Last Admin: 11/18/21 08:15 Dose: 3 ml Documented by: NORAH Sodium Chloride (0.9 % Sodium Chloride Flush 10 Ml Syringe) 5 ml IVFLUSH TID [facility] Last Admin: 11/18/21 08:15 Dose: 5 ml Documented by: NORAH Labs CBC & Chem 7: 11/18/21 05:53 11/18/21 05:53 Labs: Laboratory Results - last 24 hr 11/17/21 11/17/21 11/18/21 16:41 19:14 05:53 MCV 89.0 MCH 29.6 MCHC 33.2 RDW 12.2 Plt Count 272 MPV 8.9 L Absolute Nucleated RBC 0.000 Nucleated RBC % (auto) 0.0 PT INR Anion Gap Estim Creat Clear Calc Estimated GFR POC Glucose 185 H 221 H Random Glucose Calcium Hep Bs Antigen Hep Bs Antibody Hep B Core Total Ab Hepatitis C Antibody HIV 1&2 Ab/P24 Ag 4thGn 11/18/21 11/18/21 11/18/21 05:53 05:53 07:45 MCV MCH MCHC RDW Plt Count MPV Absolute Nucleated RBC Nucleated RBC % (auto) PT 11.1 INR 1.0 Anion Gap 13 Estim Creat Clear Calc 215.0 Estimated GFR > 60 POC Glucose 224 H Random Glucose 229 H D Calcium 8.8 Hep Bs Antigen Hep Bs Antibody Hep B Core Total Ab Hepatitis C Antibody HIV 1&2 Ab/P24 Ag 4thGn 11/18/21 11/18/21 11:25 Unknown MCV MCH MCHC RDW Plt Count MPV Absolute Nucleated RBC Nucleated RBC % (auto) PT INR Anion Gap Estim Creat Clear Calc Estimated GFR POC Glucose 242 H Random Glucose Calcium Hep Bs Antigen Negative Hep Bs Antibody NONREACTIVE Hep B Core Total Ab Nonreactive Hepatitis C Antibody NonReactive HIV 1&2 Ab/P24 Ag 4thGn Nonreactive Microbiology Microbiology Results: Microbiology 11/14/21 16:25 Gram Stain - Final Foot Right Routine Culture - Final Enterococcus faecalis Assessment and Plan (1) Osteomyelitis: Status: Acute (2) Diabetes mellitus: Status: Acute (3) Hyperlipidemia: Status: Acute (4) Cellulitis of right foot: Status: Acute (5) Obesity (BMI 30-39.9): Status: Acute (6) Diabetic foot ulcer: Status: Acute Assessment and Plan: 60-year-old gentleman with past medical history significant for uncontrolled diabetes mellitus type 2 on metformin, insulin, history of hyperlipidemia, with history of right foot callus requiring frequent shaving by high reach operator [facility] wound plantar surface of right foot was sent to [facility] due to redness dorsum of foot and drainage from foot wound, in emergency room workup showed elevated CRP and ESR, plain x-ray of foot showed no evidence of osteomyelitis, will admit patient for IV antibiotics, surgical consult for possible wound debridement. Diabetic foot ulcer/cellulitis of right foot Clinically stable, blood cultures x 2 negative times 48, right foot wound culture grew Streptococcus/Enterococcus MRI foot showed cellulitis and abscess extending dorsally between the base of 1st and 2nd phalanges, acute osteomyelitis also noted General surgery recommend no intervention, since those no local abscess noted and wound drained itself PICC line placed, case discussed with ID she recommend IV vancomycin for 6 weeks Will check weekly vanco trough and renal function No evidence of sepsis Will discuss with social work assistant regarding home services versus rehab placement to finish 6 weeks of IV antibiotic Continue daily dressing Diabetes mellitus with uncontrolled blood sugar Blood sugars elevated, Continue diabetic diet, patient took Trulicity on 11/13/20, Will continue Humalog sliding scale, adjust dose, resume Jardiance and metformin upon discharge Strongly recommend compliance with home medication and diet since hemoglobin A1c 13.1 Hyperlipidemia Continue statin Tobacco use disorder Counseling done patient declined nicotine Obesity Recommend weight loss and low-calorie diet DVT prophylaxis with Lovenox subcu Code status full code Quality Stroke Does the patient have a stroke diagnosis?: No VTE Prior VTE?: No VTE Risk Level:: Medical - moderate - high VTE Device Contraindication: Treatment Not Indicated VTE Drug Contraindication: N/A - Med Ordered
[2021-11-18] MEDS: Acetaminophen 325 MG TABLET 650 MG PO (15:47)
[2021-11-18 17:07] LABS: Glucose, Whole Blood 212 mg/dL (60-115)
[2021-11-18 20:07] LABS: Glucose, Whole Blood 247 mg/dL (60-115)
[2021-11-18] MEDS: Amitriptyline HCl 25 MG TABLET PO (21:29)
[2021-11-18] MEDS: Atorvastatin Calcium 40 MG TABLET PO (21:29)
[2021-11-18] MEDS: Montelukast Sodium 10 MG TABLET PO (21:29)
[2021-11-19] MEDS: vancomycin HCL 1,500 MG in 0.9 % Sodium Chloride 500 ML 250 MG IV ×2 (00:30→11:42)
[2021-11-19] MEDS: 0.9 % Sodium Chloride Flush 3 ML SYRINGE IVFLUSH ×4 (00:30→23:15)
[2021-11-19 04:00] VITALS: BP 130/70; PULSE 86; RESP 20; TEMP 36.5; O2SAT 93
[2021-11-19] MEDS: 0.9 % Sodium Chloride Flush 10 ML SYRINGE 5 ML IVFLUSH ×3 (07:21→21:04)
[2021-11-19] MEDS: oxyCODONE HCl Immed Release 5 MG TABLET PO ×2 (07:21→21:05)
[2021-11-19 07:46] VITALS: BP 131/67; PULSE 72; RESP 20; TEMP 36.4; O2SAT 95
[2021-11-19 08:05] LABS: Glucose, Whole Blood 170 mg/dL (60-115)
[2021-11-19] MEDS: Insulin Lispro 100 UNIT/ML 3 ML VIAL SUBCUT ×4 (08:16→21:00)
[2021-11-19] MEDS: Ammonium Lactate 12 % Lotion 226 GM BOTTLE 1 APPL TOPICAL ×2 (08:18→21:04)
[2021-11-19 09:43] LABS: Creatinine Clr Calc Pharmacy 193.8; Estimated Glomerular Filt Rate > 60
[2021-11-19 11:14] LABS: Glucose, Whole Blood 242 mg/dL (60-115)
[2021-11-19 12:00] VITALS: BP 128/71; PULSE 70; RESP 20; TEMP 36.5; O2SAT 94
--- NOTE | 2021-11-19 14:27 | HO.PM.IMPN ---
Subjective Subjective Date of Service: 11/19/21 Interval History: Being followed for diabetic foot ulcer and cellulitis , denies fevers no chills, blood sugars in 200s no other acute issues overnight PICC line in place. Review of Systems Review of Systems: Yes all other systems are reviewed and are negative Physical Exam Vital Signs: Vital Signs: Last Vital Signs Temp 97.7 F 11/19/21 12:00 Pulse 70 11/19/21 12:00 Resp 20 11/19/21 12:00 BP 128/71 11/19/21 12:00 Pulse Ox 94 11/19/21 12:00 BMI result Body Mass Index 37.5 General awake alert, no acute distress.? Neck supple no JVD. CVS? regular rate rhythm, good peripheral pulses Respiratory lungs clear to auscultation, no respiratory distress, no wheeze, no rhonchi. Gastrointestinal abdomen soft, obese, nontender, bowel sounds audible, no guarding , no rigidity. Extremities dry scaly skin both lower extremities,deep wound plantar surface right foot 1st metatarsal head, decrease redness on dorsum of right foot dry sterile dressing in place.? No drainage noted Neuro nonfocal ,speech clear. Psych appropriate affect Objective Data Active Medications Acetaminophen (Acetaminophen 325 Mg Tablet) 650 mg PO Q6H PRN PRN Reason: Pain, Mild (Pain Scale 1-3) Last Admin: 11/18/21 15:47 Dose: 650 mg Documented by: NORAH Amitriptyline HCl (Amitriptyline Hcl 25 Mg Tablet) 25 mg PO BEDTIME [facility] Last Admin: 11/18/21 21:29 Dose: 25 mg Documented by: KELY Atorvastatin Calcium (Atorvastatin Calcium 40 Mg Tablet) 40 mg PO BEDTIME [facility] Last Admin: 11/18/21 21:29 Dose: 40 mg Documented by: KELY Dextrose (Dextrose 50 % 25 Gm/50 Ml Vial) 25 gm IVPUSH Q15M PRN; Protocol PRN Reason: per Hypoglycemia Standing Ord. Enoxaparin Sodium (Enoxaparin Sodium 40 Mg/0.4 Ml Syringe) 40 mg SUBCUT Q24H [facility] Last Admin: 11/18/21 21:28 Dose: Not Given Documented by: KELY Non-Admin Reason: Patient Refused Glucose (Glucose Gel 15 Gm Gel..Gram.) 15 gm PO Q15M PRN; Protocol PRN Reason: per Hypoglycemia Standing Ord. Vancomycin HCl 1,500 mg/ (Sodium Chloride) 500 mls @ 250 mls/hr IV Q12H [facility] Last Infusion: 11/19/21 14:05 Dose: 0 mls/hr Documented by: NORAH Insulin Glargine (Insulin Glargine,Hum.Rec.Anlog 100 Unit/Ml 10 Ml Vial) 12 unit SUBCUT BEDTIME [facility] Last Admin: 11/18/21 21:29 Dose: Not Given Documented by: KELY Non-Admin Reason: Patient Refused Insulin Human Lispro (Insulin Lispro 100 Unit/Ml 3 Ml Vial) 0 unit SUBCUT QIDACHS [facility]; Protocol Last Admin: 11/19/21 11:42 Dose: 6 unit Documented by: NORAH Lactic Acid (Ammonium Lactate 12 % Lotion 226 Gm Bottle) 1 appl TOPICAL BID [facility]; Protocol Last Admin: 11/19/21 08:18 Dose: 1 appl Documented by: NORAH Montelukast Sodium (Montelukast Sodium 10 Mg Tablet) 10 mg PO BEDTIME [facility] Last Admin: 11/18/21 21:29 Dose: 10 mg Documented by: KELY Ondansetron HCl (Ondansetron Hcl 4 Mg/2 Ml Vial) 4 mg IVPUSH Q8H PRN PRN Reason: Nausea and Vomiting Oxycodone HCl (Oxycodone Hcl Immed Release 5 Mg Tablet) 5 mg PO Q6H PRN PRN Reason: Pain, Severe (Pain Scale 7-10) Last Admin: 11/19/21 07:21 Dose: 5 mg Documented by: NORAH Pharmacy Consult (Consult Rx Perform Med Rec) 1 each MISCELLANE ONCE PRN PRN Reason: Consult order Pharmacy Consult (Consult Rx Vancomycin Dosing) 1 each MISCELLANE DAILY PRN PRN Reason: Consult order Sodium Chloride (0.9 % Sodium Chloride Flush 3 Ml Syringe) 3 ml IVFLUSH QSHIFT [facility] Last Admin: 11/19/21 07:21 Dose: 3 ml Documented by: NORAH Sodium Chloride (0.9 % Sodium Chloride Flush 10 Ml Syringe) 5 ml IVFLUSH TID [facility] Last Admin: 11/19/21 07:21 Dose: 5 ml Documented by: NORAH Labs CBC & Chem 7: 11/18/21 05:53 11/19/21 09:20 Labs: Laboratory Results - last 24 hr 11/18/21 11/18/21 11/19/21 17:03 20:00 07:45 Estim Creat Clear Calc Estimated GFR POC Glucose 212 H 247 H 170 H 11/19/21 11/19/21 09:20 11:10 Estim Creat Clear Calc 193.8 Estimated GFR > 60 POC Glucose 242 H Assessment and Plan (1) Osteomyelitis: Status: Acute (2) Diabetes mellitus: Status: Acute (3) Hyperlipidemia: Status: Acute (4) Cellulitis of right foot: Status: Acute (5) Obesity (BMI 30-39.9): Status: Acute (6) Diabetic foot ulcer: Status: Acute Assessment and Plan: 60-year-old gentleman with past medical history significant for uncontrolled diabetes mellitus type 2 on metformin, insulin, history of hyperlipidemia, with history of right foot callus requiring 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 Diabetic foot ulcer/cellulitis of right foot Clinically stable, blood cultures x 2 negative times 48, right foot wound culture grew Enterococcus, no sepsis on admission MRI foot showed cellulitis and abscess extending dorsally between the base of 1st and 2nd phalanges, acute osteomyelitis also noted General surgery recommend no intervention, since no local abscess noted and wound drained itself PICC line placed,11/17 case discussed with ID she recommend IV vancomycin for 6 weeks day iv vanco ,end date 12/28, status post IV Zosyn x3 d Oxycodone as needed for foot pain Will check weekly vanco trough and renal function Social service looking for rehab bed but patient refusing rehab, patient has not seen a PCP therefore appointment made for PCP for November 21 to arrange for VNA but patient lives in [place] therefore difficult to find VNA CM looking for both options, spoke with patient and discuss discharge plan Diabetes mellitus with uncontrolled blood sugar Blood sugars elevated, Continue diabetic diet, patient took Trulicity on 11/13/20, Will continue Humalog sliding scale dosage adjusted, resume Jardiance and metformin upon discharge Strongly recommend compliance with home medication and diet since hemoglobin A1c 13.1 Will give Lantus 8 units at bedtime Hyperlipidemia Continue statin Tobacco use disorder Counseling done patient declined nicotine Obesity Recommend weight loss and low-calorie diet DVT prophylaxis with Lovenox subcu Code status full code Quality Stroke Does the patient have a stroke diagnosis?: No VTE Prior VTE?: No VTE Risk Level:: Medical - moderate - high VTE Device Contraindication: Treatment Not Indicated VTE Drug Contraindication: N/A - Med Ordered
[2021-11-19] MEDS: Acetaminophen 325 MG TABLET 650 MG PO (15:31)
[2021-11-19 15:39] VITALS: BP 119/75; PULSE 81; RESP 20; TEMP 36.7; O2SAT 97
--- NOTE | 2021-11-19 15:58 | MHC.CM.PN ---
PT IS MEDICALLY STABLE TO DC PT PREFERENCE WOULD BE TO GO HOME WITH VNA AND HI SEVERAL VNA REFERRALS HAVE BEEN MADE, NO ONE IS OFFERING SERVICES SEVERAL STR REFERRALS HAVE ALSO BEEN PLACED, THERE ARE NO BED OFFERS AT THIS TIME. DC PLAN: HOME WITH SERVICES VS STR PENDING ACCEPTING AGENCY/FACILITY
[2021-11-19 16:32] LABS: Glucose, Whole Blood 244 mg/dL (60-115)
[2021-11-19 20:00] VITALS: BP 127/73; PULSE 70; RESP 18; TEMP 36.8; O2SAT 95
[2021-11-19 20:31] LABS: Glucose, Whole Blood 283 mg/dL (60-115)
[2021-11-19] MEDS: Amitriptyline HCl 25 MG TABLET PO (21:00)
[2021-11-19] MEDS: Atorvastatin Calcium 40 MG TABLET PO (21:00)
[2021-11-19] MEDS: Montelukast Sodium 10 MG TABLET PO (21:01)
[2021-11-19] MEDS: Insulin Glargine,Hum.rec.anlog 100 UNIT/ML 10 ML VIAL 8 UNIT SUBCUT (21:02)
[2021-11-19 22:26] LABS: Vancomycin Trough 6.7 mcg/mL (10.0-20.0)
--- NOTE | 2021-11-19 22:46 | HE.PHANOTE ---
Vancomycin Addendum Patient was not given a loading dose. With 1500 mg Q12H it would take patient 2.5 more days to get into therapeutic ranges. Will increase dose to 1250 mg Q8H and get a trough after two dose of 1250 mg. This will help push the patient into theraputic range, and we can decrease dose in needed.
[2021-11-19] MEDS: vancomycin HCL 1,250 MG in 0.9 % Sodium Chloride 250 ML 166.67 MG IV (23:14)
[2021-11-20] VITALS: BP 128/70; PULSE 70; RESP 16; TEMP 36; O2SAT 94
[2021-11-20 04:00] VITALS: BP 142/77; PULSE 71; RESP 16; TEMP 36.1; O2SAT 93
[2021-11-20 06:38] LABS: Creatinine Clr Calc Pharmacy 184.8; Estimated Glomerular Filt Rate > 60
[2021-11-20] MEDS: Ammonium Lactate 12 % Lotion 226 GM BOTTLE 1 APPL TOPICAL ×2 (07:08→22:02)
[2021-11-20] MEDS: 0.9 % Sodium Chloride Flush 3 ML SYRINGE IVFLUSH ×3 (07:08→20:19)
[2021-11-20] MEDS: 0.9 % Sodium Chloride Flush 10 ML SYRINGE 5 ML IVFLUSH ×3 (07:09→22:03)
[2021-11-20 07:13] VITALS: BP 143/82; PULSE 78; RESP 19; TEMP 36.4; O2SAT 93
[2021-11-20] MEDS: oxyCODONE HCl Immed Release 5 MG TABLET PO ×2 (07:15→20:17)
[2021-11-20] MEDS: vancomycin HCL 1,250 MG in 0.9 % Sodium Chloride 250 ML 250 MG IV (07:15)
[2021-11-20] MEDS: Insulin Lispro 100 UNIT/ML 3 ML VIAL SUBCUT ×4 (07:16→20:18)
[2021-11-20 07:23] LABS: Glucose, Whole Blood 217 mg/dL (60-115)
[2021-11-20 10:55] VITALS: BP 143/83; PULSE 71; RESP 18; TEMP 36.7; O2SAT 95
[2021-11-20] MEDS: Acetaminophen 325 MG TABLET 650 MG PO (10:55)
[2021-11-20 11:05] LABS: Glucose, Whole Blood 234 mg/dL (60-115)
--- NOTE | 2021-11-20 12:41 | MHC.CM.PN ---
MULTIPLE SNF BED REFERRALS MADE PATIENT IS NOT ELIGIBLE FOR VNA SERVICES, NOR ARE THERE ANY ACCEPTING VNA [facility] ARE FIRST CHOICE. OF THIS NOTE, NO BED OFFERS
--- NOTE | 2021-11-20 14:21 | MHC.CM.PN ---
[facility] IS CONSIDERING PATIENT. THEY DO NOT HAVE A BED TODAY. SNF DENIALS GIVEN TO [facility], WELL END DATE OF 12/28/21.
[2021-11-20 14:44] LABS: Vancomycin Trough 9.8 mcg/mL (10.0-20.0)
--- NOTE | 2021-11-20 15:37 | HO.PM.IMPN ---
Subjective Subjective Date of Service: 11/20/21 Interval History: Feeling better no acute complaints, no right foot pain, no drainage noted no fevers, no chills, no other acute issues overnight. Blood sugars in 200 range. Review of Systems Review of Systems: Yes all other systems are reviewed and are negative Physical Exam Vital Signs: Vital Signs: Last Vital Signs Temp 98.1 F 11/20/21 10:55 Pulse 71 11/20/21 10:55 Resp 18 11/20/21 10:55 BP 143/83 H 11/20/21 10:55 Pulse Ox 95 11/20/21 10:55 BMI result Body Mass Index 37.5 General awake alert, no acute distress.? Neck supple no JVD. CVS? regular rate rhythm, good peripheral pulses Respiratory lungs clear to auscultation, no respiratory distress, no wheeze, no rhonchi. Gastrointestinal abdomen soft, obese, nontender, bowel sounds audible, no guarding , no rigidity. Extremities dry scaly skin both lower extremities,deep wound plantar surface right foot 1st metatarsal head, dry sterile dressing in place.? No drainage noted Neuro nonfocal ,speech clear. Psych appropriate affect Objective Data Active Medications Acetaminophen (Acetaminophen 325 Mg Tablet) 650 mg PO Q6H PRN PRN Reason: Pain, Mild (Pain Scale 1-3) Last Admin: 11/20/21 10:55 Dose: 650 mg Documented by: ANU Amitriptyline HCl (Amitriptyline Hcl 25 Mg Tablet) 25 mg PO BEDTIME [facility] Last Admin: 11/19/21 21:00 Dose: 25 mg Documented by: BALTAZAR Atorvastatin Calcium (Atorvastatin Calcium 40 Mg Tablet) 40 mg PO BEDTIME [facility] Last Admin: 11/19/21 21:00 Dose: 40 mg Documented by: BALTAZAR Dextrose (Dextrose 50 % 25 Gm/50 Ml Vial) 25 gm IVPUSH Q15M PRN; Protocol PRN Reason: per Hypoglycemia Standing Ord. Enoxaparin Sodium (Enoxaparin Sodium 40 Mg/0.4 Ml Syringe) 40 mg SUBCUT Q24H [facility] Last Admin: 11/19/21 19:34 Dose: Not Given Documented by: BALTAZAR Non-Admin Reason: Patient Refused Glucose (Glucose Gel 15 Gm Gel..Gram.) 15 gm PO Q15M PRN; Protocol PRN Reason: per Hypoglycemia Standing Ord. Vancomycin HCl 1,250 mg/ (Sodium Chloride) 250 mls @ 166.667 mls/hr IV Q8H [facility] Last Infusion: 11/20/21 08:24 Dose: 0 mls/hr Documented by: ANU Insulin Glargine (Insulin Glargine,Hum.Rec.Anlog 100 Unit/Ml 10 Ml Vial) 8 unit SUBCUT BEDTIME [facility] Last Admin: 11/19/21 21:02 Dose: 8 unit Documented by: BALTAZAR Insulin Human Lispro (Insulin Lispro 100 Unit/Ml 3 Ml Vial) 0 unit SUBCUT QIDACHS [facility]; Protocol Last Admin: 11/20/21 11:19 Dose: 6 unit Documented by: ANU Lactic Acid (Ammonium Lactate 12 % Lotion 226 Gm Bottle) 1 appl TOPICAL BID [facility]; Protocol Last Admin: 11/20/21 07:08 Dose: 1 appl Documented by: JEROD Montelukast Sodium (Montelukast Sodium 10 Mg Tablet) 10 mg PO BEDTIME [facility] Last Admin: 11/19/21 21:01 Dose: 10 mg Documented by: BALTAZAR Ondansetron HCl (Ondansetron Hcl 4 Mg/2 Ml Vial) 4 mg IVPUSH Q8H PRN PRN Reason: Nausea and Vomiting Oxycodone HCl (Oxycodone Hcl Immed Release 5 Mg Tablet) 5 mg PO Q6H PRN PRN Reason: Pain, Severe (Pain Scale 7-10) Last Admin: 11/20/21 07:15 Dose: 5 mg Documented by: JEROD Pharmacy Consult (Consult Rx Perform Med Rec) 1 each MISCELLANE ONCE PRN PRN Reason: Consult order Pharmacy Consult (Consult Rx Vancomycin Dosing) 1 each MISCELLANE DAILY PRN PRN Reason: Consult order Sodium Chloride (0.9 % Sodium Chloride Flush 3 Ml Syringe) 3 ml IVFLUSH QSHIFT [facility] Last Admin: 11/20/21 07:08 Dose: 3 ml Documented by: JEROD Sodium Chloride (0.9 % Sodium Chloride Flush 10 Ml Syringe) 5 ml IVFLUSH TID [facility] Last Admin: 11/20/21 07:09 Dose: 5 ml Documented by: JEROD Labs CBC & Chem 7: 11/18/21 05:53 11/20/21 05:19 Labs: Laboratory Results - last 24 hr 11/19/21 11/19/21 11/19/21 16:28 20:23 21:52 Estim Creat Clear Calc Estimated GFR POC Glucose 244 H 283 H Vancomycin Trough 6.7 L 11/20/21 11/20/21 11/20/21 05:19 07:10 10:51 Estim Creat Clear Calc 184.8 Estimated GFR > 60 POC Glucose 217 H 234 H Vancomycin Trough 11/20/21 14:15 Estim Creat Clear Calc Estimated GFR POC Glucose Vancomycin Trough 9.8 L Microbiology Microbiology Results: Microbiology 11/14/21 16:11 Blood Culture - Final Blood - Venous No growth after 5 days. 11/14/21 15:52 Blood Culture - Final Blood - Venous No growth after 5 days. 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 Diabetic foot ulcer/cellulitis of right foot No acute issues overnight Clinically stable, blood cultures x 2 negative times 48, right foot wound culture grew Enterococcus, no sepsis on admission MRI foot showed cellulitis and abscess extending dorsally between the base of 1st and 2nd phalanges, acute osteomyelitis also noted General surgery recommend no intervention, since no local abscess noted and wound drained itself PICC line placed,11/17 case discussed with ID she recommend IV vancomycin for 6 weeks day ? iv vanco ,end date 12/28, status post IV Zosyn x3 d Oxycodone as needed for foot pain Renal function stable Vanco trough 9.8 weekly vanco trough and renal function Social service looking for rehab bed Diabetes mellitus with uncontrolled blood sugar Blood sugars elevated, Continue diabetic diet, patient took Trulicity on 11/13/20, Will continue Humalog sliding scale dosage adjusted, resume Jardiance and metformin upon discharge Strongly recommend compliance with home medication and diet since hemoglobin A1c 13.1 Placed on Lantus 12 units at bedtime Hyperlipidemia Continue statin Tobacco use disorder Counseling done patient declined nicotine Obesity Recommend weight loss and low-calorie diet DVT prophylaxis with Lovenox subcu Code status full code Quality Stroke Does the patient have a stroke diagnosis?: No VTE Prior VTE?: No VTE Risk Level:: Medical - moderate - high VTE Device Contraindication: Treatment Not Indicated VTE Drug Contraindication: N/A - Med Ordered
[2021-11-20 15:56] VITALS: BP 138/69; PULSE 65; RESP 68; TEMP 36.8; O2SAT 98
[2021-11-20 16:03] LABS: Glucose, Whole Blood 216 mg/dL (60-115)
[2021-11-20] MEDS: vancomycin HCL 1,250 MG in 0.9 % Sodium Chloride 250 ML 166 MG IV (16:39)
[2021-11-20 19:44] VITALS: BP 133/69; PULSE 66; RESP 18; TEMP 36.6; O2SAT 98
[2021-11-20 20:00] LABS: Glucose, Whole Blood 305 mg/dL (60-115)
[2021-11-20] MEDS: Montelukast Sodium 10 MG TABLET PO (20:17)
[2021-11-20] MEDS: Amitriptyline HCl 25 MG TABLET PO (20:18)
[2021-11-20] MEDS: Atorvastatin Calcium 40 MG TABLET PO (20:18)
[2021-11-20] MEDS: Insulin Glargine,Hum.rec.anlog 100 UNIT/ML 10 ML VIAL 12 UNIT SUBCUT (20:24)
[2021-11-21] VITALS (7 sets, daily range): BP systolic 126–147; BP diastolic 67–79; PULSE 65–76; RESP 16–160; TEMP 36.2–37.1; O2SAT 93–97
[2021-11-21] MEDS: vancomycin HCL 1,250 MG in 0.9 % Sodium Chloride 250 ML 166 MG IV ×2 (00:26→16:43)
[2021-11-21 06:18] LABS: Creatinine Clr Calc Pharmacy 176.5; Estimated Glomerular Filt Rate > 60
[2021-11-21 06:47] LABS: Vancomycin Random 13.6 mcg/mL (15-20)
[2021-11-21 07:22] LABS: Glucose, Whole Blood 267 mg/dL (60-115)
[2021-11-21] MEDS: Insulin Lispro 100 UNIT/ML 3 ML VIAL SUBCUT ×3 (07:59→20:27)
[2021-11-21] MEDS: oxyCODONE HCl Immed Release 5 MG TABLET PO ×2 (08:00→20:37)
[2021-11-21] MEDS: vancomycin HCL 1,250 MG in 0.9 % Sodium Chloride 250 ML 166.66 MG IV (08:00)
[2021-11-21] MEDS: 0.9 % Sodium Chloride Flush 3 ML SYRINGE IVFLUSH ×2 (08:00→16:54)
[2021-11-21] MEDS: 0.9 % Sodium Chloride Flush 10 ML SYRINGE 5 ML IVFLUSH ×3 (08:06→20:26)
[2021-11-21] MEDS: Ammonium Lactate 12 % Lotion 226 GM BOTTLE 1 APPL TOPICAL ×2 (08:06→20:28)
[2021-11-21 11:58] LABS: Glucose, Whole Blood 261 mg/dL (60-115)
[2021-11-21 13:22] LABS: Glucose, Whole Blood 253 mg/dL (60-115)
[2021-11-21 16:15] LABS: Glucose, Whole Blood 244 mg/dL (60-115)
--- NOTE | 2021-11-21 16:48 | MHC.CM.PN ---
OF THIS NOTE, NO SNF BED OFFERS AND NO VNA OFFERS. JAYME AGUILAR SAYS THAT SHE WILL HAVE ANSWER ON BED AVAILABILITY WITHIN 48 HOURS. (BY Saturday11/24/21) CASE MANAGEMENT TO CONTINUE TO FOLLOW
--- NOTE | 2021-11-21 17:04 | HO.PM.IMPN ---
Subjective Subjective Date of Service: 11/21/21 Interval History: Diabetic foot ulcer/cellulitis of right foot Review of Systems foot cellulitis area -less discharge than yesterday Foot pain improving, denies any nausea or vomiting no fever or chills. Physical Exam Vital Signs: Vital Signs: Last Vital Signs Temp 98.4 F 11/21/21 15:35 Pulse 65 11/21/21 15:35 Resp 16 11/21/21 15:35 BP 135/72 11/21/21 15:35 Pulse Ox 96 11/21/21 15:35 BMI result Body Mass Index 37.5 General: awake alert, no acute distress.? CVS:regular rate rhythm, good peripheral pulses chest: lungs clear to auscultation, no respiratory distress, no wheeze, no rhonchi. Gastrointestinal :abdomen soft, obese, nontender, bowel sounds audible, no guarding , no rigidity. Extremities: dry scaly skin both lower extremities,deep wound plantar surface right foot 1st metatarsal head, dry sterile dressing in place.? No drainage noted Neuro nonfocal ,speech clear. Psych appropriate affect Objective Data Active Medications Acetaminophen (Acetaminophen 325 Mg Tablet) 650 mg PO Q6H PRN PRN Reason: Pain, Mild (Pain Scale 1-3) Last Admin: 11/20/21 10:55 Dose: 650 mg Documented by: ANU Amitriptyline HCl (Amitriptyline Hcl 25 Mg Tablet) 25 mg PO BEDTIME [facility] Last Admin: 11/20/21 20:18 Dose: 25 mg Documented by: RAN Atorvastatin Calcium (Atorvastatin Calcium 40 Mg Tablet) 40 mg PO BEDTIME [facility] Last Admin: 11/20/21 20:18 Dose: 40 mg Documented by: RAN Dextrose (Dextrose 50 % 25 Gm/50 Ml Vial) 25 gm IVPUSH Q15M PRN; Protocol PRN Reason: per Hypoglycemia Standing Ord. Enoxaparin Sodium (Enoxaparin Sodium 40 Mg/0.4 Ml Syringe) 40 mg SUBCUT Q24H [facility] Last Admin: 11/20/21 20:20 Dose: Not Given Documented by: RAN Non-Admin Reason: Patient Refused Glucose (Glucose Gel 15 Gm Gel..Gram.) 15 gm PO Q15M PRN; Protocol PRN Reason: per Hypoglycemia Standing Ord. Vancomycin HCl 1,250 mg/ (Sodium Chloride) 250 mls @ 166.667 mls/hr IV Q8H [facility] Last Admin: 11/21/21 16:43 Dose: 166 mls/hr Documented by: LIZABETH Insulin Glargine (Insulin Glargine,Hum.Rec.Anlog 100 Unit/Ml 10 Ml Vial) 12 unit SUBCUT BEDTIME [facility] Last Admin: 11/20/21 20:24 Dose: 12 unit Documented by: RAN Insulin Human Lispro (Insulin Lispro 100 Unit/Ml 3 Ml Vial) 0 unit SUBCUT QIDACHS [facility]; Protocol Last Admin: 11/21/21 16:41 Dose: 6 unit Documented by: LIZABETH Lactic Acid (Ammonium Lactate 12 % Lotion 226 Gm Bottle) 1 appl TOPICAL BID [facility]; Protocol Last Admin: 11/21/21 08:06 Dose: 1 appl Documented by: EMILIA Montelukast Sodium (Montelukast Sodium 10 Mg Tablet) 10 mg PO BEDTIME [facility] Last Admin: 11/20/21 20:17 Dose: 10 mg Documented by: RAN Ondansetron HCl (Ondansetron Hcl 4 Mg/2 Ml Vial) 4 mg IVPUSH Q8H PRN PRN Reason: Nausea and Vomiting Oxycodone HCl (Oxycodone Hcl Immed Release 5 Mg Tablet) 5 mg PO Q6H PRN PRN Reason: Pain, Severe (Pain Scale 7-10) Last Admin: 11/21/21 08:00 Dose: 5 mg Documented by: EMILIA Pharmacy Consult (Consult Rx Perform Med Rec) 1 each MISCELLANE ONCE PRN PRN Reason: Consult order Pharmacy Consult (Consult Rx Vancomycin Dosing) 1 each MISCELLANE DAILY PRN PRN Reason: Consult order Sodium Chloride (0.9 % Sodium Chloride Flush 3 Ml Syringe) 3 ml IVFLUSH QSHIFT [facility] Last Admin: 11/21/21 16:54 Dose: 3 ml Documented by: LIZABETH Sodium Chloride (0.9 % Sodium Chloride Flush 10 Ml Syringe) 5 ml IVFLUSH TID [facility] Last Admin: 11/21/21 16:54 Dose: 5 ml Documented by: LIZABETH Labs CBC & Chem 7: 11/18/21 05:53 11/21/21 05:54 Labs: Laboratory Results - last 24 hr 11/20/21 11/21/21 11/21/21 19:54 05:54 05:54 Estim Creat Clear Calc 176.5 Estimated GFR > 60 POC Glucose 305 H Random Vancomycin 13.6 L 11/21/21 11/21/21 11/21/21 07:17 11:25 13:18 Estim Creat Clear Calc Estimated GFR POC Glucose 267 H 261 H 253 H Random Vancomycin 11/21/21 16:07 Estim Creat Clear Calc Estimated GFR POC Glucose 244 H Random Vancomycin Assessment and Plan (1) Osteomyelitis: Status: Acute (2) Diabetes mellitus: Status: Acute Assessment and Plan: 60-year-old gentleman with past medical history significant for uncontrolled diabetes mellitus type 2 on metformin, insulin, history of hyperlipidemia, with history of right foot callus requiring frequent shaving by outsole splicer [facility] to open wound plantar surface of right foot was sent to [place] [facility] due to redness dorsum of foot and drainage from foot wound, in emergency room workup showed elevated CRP and ESR, plain x-ray of foot showed no evidence of osteomyelitis, will admit patient for IV antibiotics, surgical consult for possible wound debridement. 1.Diabetic foot ulcer/cellulitis of right foot No acute issues overnight Clinically stable, blood cultures x 2 negative times 48, right foot wound culture grew Enterococcus, no sepsis on admission MRI foot showed cellulitis and abscess extending dorsally between the base of 1st and 2nd phalanges, acute osteomyelitis also noted General surgery recommend no intervention, since no local abscess noted and wound drained itself PICC line placed,11/17 case discussed with ID she recommend IV vancomycin for 6 weeks day ? iv vanco ,end date 12/28, status post IV Zosyn x3 d Oxycodone as needed for foot pain Renal function stable Vanco trough 13 weekly vanco trough and renal function Social service looking for rehab bed 2.Diabetes mellitus with uncontrolled blood sugar Blood sugars elevated, Continue diabetic diet, patient took Trulicity on 11/13/20, Will continue Humalog sliding scale dosage adjusted, resume Jardiance and metformin upon discharge Strongly recommend compliance with home medication and diet since hemoglobin A1c 13.1 Placed on Lantus 12 units at bedtime 3.Hyperlipidemia Continue statin 4.Tobacco use disorder Counseling done patient declined nicotine 5.Obesity Recommend weight loss and low-calorie diet DVT prophylaxis with Lovenox subcu Code status full code Quality Stroke Does the patient have a stroke diagnosis?: No VTE Prior VTE?: No VTE Risk Level:: Medical - moderate - high VTE Device Contraindication: Treatment Not Indicated VTE Drug Contraindication: N/A - Med Ordered
[2021-11-21 20:02] LABS: Glucose, Whole Blood 237 mg/dL (60-115)
[2021-11-21] MEDS: Amitriptyline HCl 25 MG TABLET PO (20:26)
[2021-11-21] MEDS: Montelukast Sodium 10 MG TABLET PO (20:27)
[2021-11-21] MEDS: Atorvastatin Calcium 40 MG TABLET PO (20:27)
[2021-11-21] MEDS: Insulin Glargine,Hum.rec.anlog 100 UNIT/ML 10 ML VIAL 12 UNIT SUBCUT (20:28)
[2021-11-22] VITALS (7 sets, daily range): BP systolic 122–149; BP diastolic 61–78; PULSE 61–71; RESP 16–20; TEMP 36–36.5; O2SAT 95–97
[2021-11-22] MEDS: vancomycin HCL 1,250 MG in 0.9 % Sodium Chloride 250 ML 166.67 MG IV ×3 (00:51→16:14)
[2021-11-22 06:53] LABS: Creatinine Clr Calc Pharmacy 168.9; Estimated Glomerular Filt Rate > 60
[2021-11-22 06:56] LABS: Vancomycin Trough 14.8 mcg/mL (10.0-20.0)
[2021-11-22] MEDS: oxyCODONE HCl Immed Release 5 MG TABLET PO ×3 (07:12→22:05)
[2021-11-22] MEDS: 0.9 % Sodium Chloride Flush 3 ML SYRINGE IVFLUSH ×2 (07:12→16:15)
[2021-11-22] MEDS: 0.9 % Sodium Chloride Flush 10 ML SYRINGE 5 ML IVFLUSH ×3 (07:12→21:53)
[2021-11-22 07:47] LABS: Glucose, Whole Blood 226 mg/dL (60-115)
[2021-11-22] MEDS: Insulin Lispro 100 UNIT/ML 3 ML VIAL SUBCUT ×4 (08:00→21:55)
--- NOTE | 2021-11-22 08:15 | HO.PM.IMPN ---
Subjective Subjective Date of Service: 11/22/21 Interval History: foot osteo Review of Systems foot pain imrpoving, no significant discharge Physical Exam Vital Signs: Vital Signs: Last Vital Signs Temp 97.4 F 11/22/21 07:52 Pulse 64 11/22/21 07:52 Resp 20 11/22/21 07:52 BP 128/72 11/22/21 07:52 Pulse Ox 96 11/22/21 07:52 BMI result Body Mass Index 37.5 General: awake alert, no acute distress.? CVS:regular rate rhythm, good peripheral pulses chest: lungs clear to auscultation, no respiratory distress, no wheeze, no rhonchi. Gastrointestinal :abdomen soft, obese, nontender, bowel sounds audible, no guarding , no rigidity. Extremities: dry scaly skin both lower extremities,deep wound plantar surface right foot 1st metatarsal head, dry sterile dressing in place.? No drainage noted Neuro nonfocal ,non focal. Psych appropriate affect Objective Data Active Medications Acetaminophen (Acetaminophen 325 Mg Tablet) 650 mg PO Q6H PRN PRN Reason: Pain, Mild (Pain Scale 1-3) Last Admin: 11/20/21 10:55 Dose: 650 mg Documented by: ANU Amitriptyline HCl (Amitriptyline Hcl 25 Mg Tablet) 25 mg PO BEDTIME [facility] Last Admin: 11/21/21 20:26 Dose: 25 mg Documented by: JOVANNA Atorvastatin Calcium (Atorvastatin Calcium 40 Mg Tablet) 40 mg PO BEDTIME [facility] Last Admin: 11/21/21 20:27 Dose: 40 mg Documented by: JOVANNA Dextrose (Dextrose 50 % 25 Gm/50 Ml Vial) 25 gm IVPUSH Q15M PRN; Protocol PRN Reason: per Hypoglycemia Standing Ord. Enoxaparin Sodium (Enoxaparin Sodium 40 Mg/0.4 Ml Syringe) 40 mg SUBCUT Q24H [facility] Last Admin: 11/21/21 20:26 Dose: Not Given Documented by: JOVANNA Non-Admin Reason: Patient Refused Glucose (Glucose Gel 15 Gm Gel..Gram.) 15 gm PO Q15M PRN; Protocol PRN Reason: per Hypoglycemia Standing Ord. Vancomycin HCl 1,250 mg/ (Sodium Chloride) 250 mls @ 166.667 mls/hr IV Q8H [facility] Last Admin: 11/22/21 07:13 Dose: 166.67 mls/hr Documented by: JEROD Insulin Glargine (Insulin Glargine,Hum.Rec.Anlog 100 Unit/Ml 10 Ml Vial) 12 unit SUBCUT BEDTIME [facility] Last Admin: 11/21/21 20:28 Dose: 12 unit Documented by: JOVANNA Insulin Human Lispro (Insulin Lispro 100 Unit/Ml 3 Ml Vial) 0 unit SUBCUT QIDACHS [facility]; Protocol Last Admin: 11/22/21 08:00 Dose: 6 unit Documented by: DANYA Lactic Acid (Ammonium Lactate 12 % Lotion 226 Gm Bottle) 1 appl TOPICAL BID [facility]; Protocol Last Admin: 11/21/21 20:28 Dose: 1 appl Documented by: JOVANNA Montelukast Sodium (Montelukast Sodium 10 Mg Tablet) 10 mg PO BEDTIME [facility] Last Admin: 11/21/21 20:27 Dose: 10 mg Documented by: JOVANNA Ondansetron HCl (Ondansetron Hcl 4 Mg/2 Ml Vial) 4 mg IVPUSH Q8H PRN PRN Reason: Nausea and Vomiting Oxycodone HCl (Oxycodone Hcl Immed Release 5 Mg Tablet) 5 mg PO Q6H PRN PRN Reason: Pain, Severe (Pain Scale 7-10) Last Admin: 11/22/21 07:12 Dose: 5 mg Documented by: JEROD Pharmacy Consult (Consult Rx Perform Med Rec) 1 each MISCELLANE ONCE PRN PRN Reason: Consult order Pharmacy Consult (Consult Rx Vancomycin Dosing) 1 each MISCELLANE DAILY PRN PRN Reason: Consult order Sodium Chloride (0.9 % Sodium Chloride Flush 3 Ml Syringe) 3 ml IVFLUSH QSHIFT [facility] Last Admin: 11/22/21 07:12 Dose: 3 ml Documented by: JEROD Sodium Chloride (0.9 % Sodium Chloride Flush 10 Ml Syringe) 5 ml IVFLUSH TID [facility] Last Admin: 11/22/21 07:12 Dose: 5 ml Documented by: JEROD Labs CBC & Chem 7: 11/18/21 05:53 11/22/21 06:23 Labs: Laboratory Results - last 24 hr 11/21/21 11/21/21 11/21/21 11:25 13:18 16:07 Estim Creat Clear Calc Estimated GFR POC Glucose 261 H 253 H 244 H Vancomycin Trough 11/21/21 11/22/21 11/22/21 19:46 06:23 06:23 Estim Creat Clear Calc 168.9 Estimated GFR > 60 POC Glucose 237 H Vancomycin Trough 14.8 11/22/21 07:40 Estim Creat Clear Calc Estimated GFR POC Glucose 226 H Vancomycin Trough Assessment and Plan (1) Osteomyelitis: Status: Acute (2) Diabetes mellitus: Status: Acute Assessment and Plan: 60-year-old gentleman with past medical history significant for uncontrolled diabetes mellitus type 2 on metformin, insulin, history of hyperlipidemia, with history of right foot callus requiring frequent shaving by belly packer [facility] due to open wound plantar surface of right foot was sent to [place] [facility] due to redness dorsum of foot and drainage from foot wound, in emergency room workup showed elevated CRP and ESR, plain x-ray of foot showed no evidence of osteomyelitis, will admit patient for IV antibiotics, surgical consult for possible wound debridement. 1.Diabetic foot ulcer/cellulitis of right foot No acute issues overnight Clinically stable, blood cultures x 2 negative times 48, right foot wound culture grew Enterococcus, no sepsis on admission MRI foot showed cellulitis and abscess extending dorsally between the base of 1st and 2nd phalanges, acute osteomyelitis also noted General surgery recommend no intervention, since no local abscess noted and wound drained itself PICC line placed,11/17 case discussed with ID she recommend IV vancomycin for 6 weeks day ? iv vanco ,end date 12/28, status post IV Zosyn x3 d Oxycodone as needed for foot pain Renal function stable Vanco trough 14.8 weekly vanco trough and renal function Social service looking for rehab bed 2.Diabetes mellitus with uncontrolled blood sugar Blood sugars elevated, Continue diabetic diet, patient took Trulicity on 11/13/20, Will continue Humalog sliding scale dosage adjusted, resume Jardiance and metformin upon discharge Strongly recommend compliance with home medication and diet since hemoglobin A1c 13.1 Placed on Lantus 12 units at bedtime 3.Hyperlipidemia Continue statin 4.Tobacco use disorder Counseling done patient declined nicotine 5.Obesity Recommend weight loss and low-calorie diet DVT prophylaxis with Lovenox subcu Code status full code Quality Stroke Does the patient have a stroke diagnosis?: No VTE Prior VTE?: No VTE Risk Level:: Medical - moderate - high VTE Device Contraindication: Treatment Not Indicated VTE Drug Contraindication: N/A - Med Ordered
[2021-11-22] MEDS: Ammonium Lactate 12 % Lotion 226 GM BOTTLE 1 APPL TOPICAL ×2 (11:13→22:00)
[2021-11-22 11:31] LABS: Glucose, Whole Blood 258 mg/dL (60-115)
[2021-11-22 11:31] LABS: Glucose, Whole Blood 272 mg/dL (60-115)
--- NOTE | 2021-11-22 14:05 | MHC.CM.PN ---
Addendum entered by Darline Elmore 11/22/21 14:41: [facility] CAN OFFER. THEY WILL SUBMIT FOR AUTH [facility] RN RYAN AWARE ([phone]) PATIENT AND CYBER OPERATOR ALSO MADE AWARE Original Note: THIS TOBACCO DRIER OPERATOR SPOKE WITH RYAN, [facility] RN. ([phone]) RYAN IS AWARE OF LACK OF SNF BED OFFERS AND LACK OF VNA ACCEPTANCES SHE ASKS THAT ANOTHER REFERRAL BE PLACED TO INCLUDE [facility], NOW DONE. MACHINE SHORTHAND REPORTER TO WAIT FOR [facility] RESPONSE, AND CALL RYAN BACK.IF NO SNF BED OFFER, [facility] CAN ATTEMPT AUTH. CASE MANAGEMENT CONTINUING TO FOLLOW
--- NOTE | 2021-11-22 14:28 | P.PNGS_ITS ---
Subjective Subjective Date of Service: 11/22/21 Interval history: Asked to re see regarding right foot wounds. Patient reports new wound to lateral aspect of distal right great toe that he is concerned about. Physical Exam Vital Signs: Vital Signs: Last Vital Signs Temp 96.8 F 11/22/21 12:00 Pulse 71 11/22/21 12:00 Resp 18 11/22/21 12:00 BP 131/62 11/22/21 12:00 Pulse Ox 97 11/22/21 12:00 BMI result Body Mass Index 37.5 Const: General: comfortable and no acute distress Orientation/consciousness: patient oriented x3 Resp: Effort & Inspection: normal respiratory effort Skin: Other: warm and dry Neuro: General: patient oriented x3 Extrem: Other: Right foot plantar aspect with deep ulcer at the 1st metatarsal head area surrounded by thick callus, cellulitic changes of foot resolved, very scant thin serous drainage from area at this time, small amount of purulence from very small opening at distal and lateral aspect of right great toe. Callused skin from area sharply debrided and area exposed. The opening is very small and no further purulence was expressed, no fluctuance appreciated or surrounding erythema Objective Data Active Medications Acetaminophen (Acetaminophen 325 Mg Tablet) 650 mg PO Q6H PRN PRN Reason: Pain, Mild (Pain Scale 1-3) Last Admin: 11/20/21 10:55 Dose: 650 mg Documented by: ANU Amitriptyline HCl (Amitriptyline Hcl 25 Mg Tablet) 25 mg PO BEDTIME [facility] Last Admin: 11/21/21 20:26 Dose: 25 mg Documented by: JOVANNA Atorvastatin Calcium (Atorvastatin Calcium 40 Mg Tablet) 40 mg PO BEDTIME [facility] Last Admin: 11/21/21 20:27 Dose: 40 mg Documented by: JOVANNA Dextrose (Dextrose 50 % 25 Gm/50 Ml Vial) 25 gm IVPUSH Q15M PRN; Protocol PRN Reason: per Hypoglycemia Standing Ord. Enoxaparin Sodium (Enoxaparin Sodium 40 Mg/0.4 Ml Syringe) 40 mg SUBCUT Q24H [facility] Last Admin: 11/21/21 20:26 Dose: Not Given Documented by: JOVANNA Non-Admin Reason: Patient Refused Glucose (Glucose Gel 15 Gm Gel..Gram.) 15 gm PO Q15M PRN; Protocol PRN Reason: per Hypoglycemia Standing Ord. Vancomycin HCl 1,250 mg/ (Sodium Chloride) 250 mls @ 166.667 mls/hr IV Q8H [facility] Last Infusion: 11/22/21 09:47 Dose: 166.67 mls/hr Documented by: DANAY Insulin Glargine (Insulin Glargine,Hum.Rec.Anlog 100 Unit/Ml 10 Ml Vial) 12 unit SUBCUT BEDTIME [facility] Last Admin: 11/21/21 20:28 Dose: 12 unit Documented by: JOVANNA Insulin Human Lispro (Insulin Lispro 100 Unit/Ml 3 Ml Vial) 0 unit SUBCUT QIDAC HS [facility]; Protocol Last Admin: 11/22/21 11:42 Dose: 8 unit Documented by: DANAY Lactic Acid (Ammonium Lactate 12 % Lotion 226 Gm Bottle) 1 appl TOPICAL BID [facility]; Protocol Last Admin: 11/22/21 11:13 Dose: 1 appl Documented by: DANAY Montelukast Sodium (Montelukast Sodium 10 Mg Tablet) 10 mg PO BEDTIME [facility] Last Admin: 11/21/21 20:27 Dose: 10 mg Documented by: JOVANNA Ondansetron HCl (Ondansetron Hcl 4 Mg/2 Ml Vial) 4 mg IVPUSH Q8H PRN PRN Reason: Nausea and Vomiting Oxycodone HCl (Oxycodone Hcl Immed Release 5 Mg Tablet) 5 mg PO Q6H PRN PRN Reason: Pain, Severe (Pain Scale 7-10) Last Admin: 11/22/21 13:48 Dose: 5 mg Documented by: DANAY Pharmacy Consult (Consult Rx Perform Med Rec) 1 each MISCELLANE ONCE PRN PRN Reason: Consult order Pharmacy Consult (Consult Rx Vancomycin Dosing) 1 each MISCELLANE DAILY PRN PRN Reason: Consult order Sodium Chloride (0.9 % Sodium Chloride Flush 3 Ml Syringe) 3 ml IVFLUSH QSHIFT [facility] Last Admin: 11/22/21 07:12 Dose: 3 ml Documented by: JEROD Sodium Chloride (0.9 % Sodium Chloride Flush 10 Ml Syringe) 5 ml IVFLUSH TID [facility] Last Admin: 11/22/21 13:50 Dose: 5 ml Documented by: DANAY Labs CBC & Chem 7: 11/18/21 05:53 11/22/21 06:23 Labs: Laboratory Results - last 24 hr 11/21/21 11/21/21 11/22/21 16:07 19:46 06:23 Estim Creat Clear Calc Estimated GFR POC Glucose 244 H 237 H Vancomycin Trough 14.8 11/22/21 11/22/21 11/22/21 06:23 07:40 11:16 Estim Creat Clear Calc 168.9 Estimated GFR > 60 POC Glucose 226 H 258 H Vancomycin Trough 11/22/21 11:18 Estim Creat Clear Calc Estimated GFR POC Glucose 272 H Vancomycin Trough Procedures Date of Service Date of Service: 11/22/21 Progress Note: A&P Assessment and plan (1) Osteomyelitis: Status: Acute (2) Diabetes mellitus: Status: Acute (3) Diabetic foot ulcer: Status: Acute Assessment and Plan: 60 year old male with hx of diabetes mellitus, diabetic ulcer on plantar aspect of right foot admitted with cellulitis. Had MRI which showed osteomyelitis of the sesamoids, with abscess between the 1st and 2nd metatarsal which was freely draining on its own. Has PICC line with plans for STR and IV vanco for 6 weeks. Asked to resee regarding right foot and new wound. Cellulitic changes had resolv ed. He does have a new opening that is very small at lateral, distal aspect of right great toe. Area exposed and no evidence of abscess. No further surgical intervention needed. Can continue current local wound care with alginate packing to ulcer, fluffs, abd and camron roll. Cont no weight-bearing, blood sugar cntrols, IV abx. Can f/u at wound care center. Fall Risk Details Current Medications: Current Medications Acetaminophen (Acetaminophen 325 Mg Tablet) 650 mg PO Q6H PRN PRN Reason: Pain, Mild (Pain Scale 1-3) Last Admin: 11/20/21 10:55 Dose: 650 mg Documented by: Amitriptyline HCl (Amitriptyline Hcl 25 Mg Tablet) 25 mg PO BEDTIME [facility] Last Admin: 11/21/21 20:26 Dose: 25 mg Documented by: Atorvastatin Calcium (Atorvastatin Calcium 40 Mg Tablet) 40 mg PO BEDTIME [facility] Last Admin: 11/21/21 20:27 Dose: 40 mg Documented by: Dextrose (Dextrose 50 % 25 Gm/50 Ml Vial) 25 gm IVPUSH Q15M PRN; Protocol PRN Reason: per Hypoglycemia Standing Ord. Enoxaparin Sodium (Enoxaparin Sodium 40 Mg/0.4 Ml Syringe) 40 mg SUBCUT Q24H [facility] Last Admin: 11/21/21 20:26 Dose: Not Given Documented by: Glucose (Glucose Gel 15 Gm Gel..Gram.) 15 gm PO Q15M PRN; Protocol PRN Reason: per Hypoglycemia Standing Ord. Vancomycin HCl 1,250 mg/ (Sodium Chloride) 250 mls @ 166.667 mls/hr IV Q8H [facility] Last Infusion: 11/22/21 09:47 Dose: Infused Documented by: Insulin Glargine (Insulin Glargine,Hum.Rec.Anlog 100 Unit/Ml 10 Ml Vial) 12 unit SUBCUT BEDTIME [facility] Last Admin: 11/21/21 20:28 Dose: 12 unit Documented by: Insulin Human Lispro (Insulin Lispro 100 Unit/Ml 3 Ml Vial) 0 unit SUBCUT QIDACHS [facility]; Protocol Last Admin: 11/22/21 11:42 Dose: 8 unit Documented by: Lactic Acid (Ammonium Lactate 12 % Lotion 226 Gm Bottle) 1 appl TOPICAL BID [facility]; Protocol Last Admin: 11/22/21 11:13 Dose: 1 appl Documented by: Montelukast Sodium (Montelukast Sodium 10 Mg Tablet) 10 mg PO BEDTIME [facility] Last Admin: 11/21/21 20:27 Dose: 10 mg Documented by: Ondansetron HCl (Ondansetron Hcl 4 Mg/2 Ml Vial) 4 mg IVPUSH Q8H PRN PRN Reason: Nausea and Vomiting Oxycodone HCl (Oxycodone Hcl Immed Release 5 Mg Tablet) 5 mg PO Q6H PRN PRN Reason: Pain, Severe (Pain Scale 7-10) Last Admin: 11/22/21 13:48 Dose: 5 mg Documented by: Pharmacy Consult (Consult Rx Perform Med Rec) 1 each MISCELLANE ONCE PRN PRN Reason: Consult order Pharmacy Consult (Consult Rx Vancomycin Dosing) 1 each MISCELLANE DAILY PRN PRN Reason: Consult order Sodium Chloride (0.9 % Sodium Chloride Flush 3 Ml Syringe) 3 ml IVFLUSH QSHIFT [facility] Last Admin: 11/22/21 07:12 Dose: 3 ml Documented by: Sodium Chloride (0.9 % Sodium Chloride Flush 10 Ml Syringe) 5 ml IVFLUSH TID [facility] Last Admin: 11/22/21 13:50 Dose: 5 ml Documented by: Time Spent With Patient Time: Total time spent is greater than 50% in coordination of care (as documented) at patient's floor/unit and/or counseling patient: Time with patient: 15 - 24 minutes Quality Stroke Does the patient have a stroke diagnosis?: No VTE Prior VTE?: No VTE Risk Level:: Medical - moderate - high VTE Device Contraindication: Treatment Not Indicated VTE Drug Contraindication: N/A - Med Ordered
[2021-11-22 16:38] LABS: Glucose, Whole Blood 256 mg/dL (60-115)
[2021-11-22 20:38] LABS: Glucose, Whole Blood 239 mg/dL (60-115)
[2021-11-22] MEDS: Atorvastatin Calcium 40 MG TABLET PO (21:53)
[2021-11-22] MEDS: Amitriptyline HCl 25 MG TABLET PO (21:54)
[2021-11-22] MEDS: Montelukast Sodium 10 MG TABLET PO (21:54)
[2021-11-22] MEDS: Insulin Glargine,Hum.rec.anlog 100 UNIT/ML 10 ML VIAL 12 UNIT SUBCUT (21:55)
[2021-11-23] VITALS: BP 120/70; PULSE 59; RESP 18; TEMP 36.4; O2SAT 96
[2021-11-23] MEDS: vancomycin HCL 1,250 MG in 0.9 % Sodium Chloride 250 ML 166.67 MG IV ×3 (00:19→16:23)
[2021-11-23 03:29] VITALS: BP 124/67; PULSE 62; RESP 18; TEMP 36.6; O2SAT 94
[2021-11-23 06:49] LABS: Creatinine Clr Calc Pharmacy 200.4; Estimated Glomerular Filt Rate > 60
[2021-11-23 07:31] VITALS: BP 134/71; PULSE 66; RESP 20; TEMP 36.2; O2SAT 96
[2021-11-23 07:41] LABS: Glucose, Whole Blood 224 mg/dL (60-115)
[2021-11-23 07:53] LABS: Vancomycin Trough 15.5 mcg/mL (10.0-20.0)
[2021-11-23] MEDS: Insulin Lispro 100 UNIT/ML 3 ML VIAL SUBCUT ×3 (07:56→16:31)
[2021-11-23] MEDS: 0.9 % Sodium Chloride Flush 3 ML SYRINGE IVFLUSH ×2 (07:58→16:26)
[2021-11-23] MEDS: Ammonium Lactate 12 % Lotion 226 GM BOTTLE 1 APPL TOPICAL (07:59)
[2021-11-23] MEDS: 0.9 % Sodium Chloride Flush 10 ML SYRINGE 5 ML IVFLUSH ×2 (08:00→16:26)
--- NOTE | 2021-11-23 09:11 | P.PNIM_ITS ---
Subjective Subjective Date of Service: 11/23/21 Interval History: dm foot ulcer Physical Exam Vital Signs: Vital Signs: Last Vital Signs Temp 97.2 F 11/23/21 07:31 Pulse 66 11/23/21 07:31 Resp 20 11/23/21 07:31 BP 134/71 11/23/21 07:31 Pulse Ox 96 11/23/21 07:31 BMI result Body Mass Index 37.5 Objective Data Active Medications Acetaminophen (Acetaminophen 325 Mg Tablet) 650 mg PO Q6H PRN PRN Reason: Pain, Mild (Pain Scale 1-3) Last Admin: 11/20/21 10:55 Dose: 650 mg Documented by: ANU Amitriptyline HCl (Amitriptyline Hcl 25 Mg Tablet) 25 mg PO BEDTIME [facility] Last Admin: 11/22/21 21:54 Dose: 25 mg Documented by: JOVANNA Atorvastatin Calcium (Atorvastatin Calcium 40 Mg Tablet) 40 mg PO BEDTIME [facility] Last Admin: 11/22/21 21:53 Dose: 40 mg Documented by: JOVANNA Dextrose (Dextrose 50 % 25 Gm/50 Ml Vial) 25 gm IVPUSH Q15M PRN; Protocol PRN Reason: per Hypoglycemia Standing Ord. Enoxaparin Sodium (Enoxaparin Sodium 40 Mg/0.4 Ml Syringe) 40 mg SUBCUT Q24H [facility] Last Admin: 11/22/21 21:53 Dose: Not Given Documented by: JOVANNA Non-Admin Reason: Patient Refused Glucose (Glucose Gel 15 Gm Gel..Gram.) 15 gm PO Q15M PRN; Protocol PRN Reason: per Hypoglycemia Standing Ord. Vancomycin HCl 1,250 mg/ (Sodium Chloride) 250 mls @ 166.667 mls/hr IV Q8H [facility] Last Admin: 11/23/21 07:58 Dose: 166.67 mls/hr Documented by: MURTAZA Insulin Glargine (Insulin Glargine,Hum.Rec.Anlog 100 Unit/Ml 10 Ml Vial) 12 unit SUBCUT BEDTIME [facility] Last Admin: 11/22/21 21:55 Dose: 12 unit Documented by: JOVANNA Insulin Human Lispro (Insulin Lispro 100 Unit/Ml 3 Ml Vial) 0 unit SUBCUT QIDACHS [facility]; Protocol Last Admin: 11/23/21 07:56 Dose: 6 unit Documented by: MURTAZA Lactic Acid (Ammonium Lactate 12 % Lotion 226 Gm Bottle) 1 appl TOPICAL BID [facility]; Protocol Last Admin: 11/23/21 07:59 Dose: 1 appl Documented by: MURTAZA Montelukast Sodium (Montelukast Sodium 10 Mg Tablet) 10 mg PO BEDTIME [facility] Last Admin: 11/22/21 21:54 Dose: 10 mg Documented by: JOVANNA Ondansetron HCl (Ondansetron Hcl 4 Mg/2 Ml Vial) 4 mg IVPUSH Q8H PRN PRN Reason: Nausea and Vomiting Oxycodone HCl (Oxycodone Hcl Immed Release 5 Mg Tablet) 5 mg PO Q6H PRN PRN Reason: Pain, Severe (Pain Scale 7-10) Last Admin: 11/22/21 22:05 Dose: 5 mg Documented by: JOVANNA Pharmacy Consult (Consult Rx Perform Med Rec) 1 each MISCELLANE ONCE PRN PRN Reason: Consult order Pharmacy Consult (Consult Rx Vancomycin Dosing) 1 each MISCELLANE DAILY PRN PRN Reason: Consult order Sodium Chloride (0.9 % Sodium Chloride Flush 3 Ml Syringe) 3 ml IVFLUSH QSHIFT [facility] Last Admin: 11/23/21 07:58 Dose: 3 ml Documented by: MURTAZA Sodium Chloride (0.9 % Sodium Chloride Flush 10 Ml Syringe) 5 ml IVFLUSH TID [facility] Last Admin: 11/23/21 08:00 Dose: 5 ml Documented by: MURTAZA Labs CBC & Chem 7: 11/18/21 05:53 11/23/21 05:46 Labs: Laboratory Results - last 24 hr 11/22/21 11/22/21 11/22/21 11:16 11:18 15:26 Estim Creat Clear Calc Estimated GFR POC Glucose 258 H 272 H 256 H Vancomycin Trough 11/22/21 11/23/21 11/23/21 19:58 05:46 05:46 Estim Creat Clear Calc 200.4 Estimated GFR > 60 POC Glucose 239 H Vancomycin Trough 15.5 11/23/21 07:32 Estim Creat Clear Calc Estimated GFR POC Glucose 224 H Vancomycin Trough Quality Stroke Does the patient have a stroke diagnosis?: No VTE Prior VTE?: No VTE Risk Level:: Medical - moderate - high VTE Device Contraindication: Treatment Not Indicated VTE Drug Contraindication: N/A - Med Ordered
[2021-11-23 11:12] VITALS: BP 138/80; PULSE 66; RESP 20; TEMP 36.7; O2SAT 94
[2021-11-23 11:16] LABS: Glucose, Whole Blood 237 mg/dL (60-115)
--- NOTE | 2021-11-23 13:26 | PM.DS ---
DS: Providers Provider Date of Service: 11/23/21 Date of admission: 11/14/21 18:22 Primary care physician: Unknown Physician Consults: 11/14/21 18:27 Consult to General Surgery Routine Consulting Provider: Kit Henderson Reason for consultation: rt foot wound Has provider been notified: No 11/15/21 11:49 Consult to Infectious Diseases Routine Consulting Provider: Patricia Bright Reason for consultation: rt foot diabetic wound Has provider been notified: No DS: Diagnosis Discharge Diagnosis (1) Osteomyelitis: Status: Acute (2) Diabetes mellitus: Status: Acute (3) Diabetic foot ulcer: Status: Acute DS: Summary Hospital Course Hospital Course: 60-year-old gentleman with past medical history significant for type 2 diabetes mellitus, hyperlipidemia, 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 was referred to wound care clinic and has been treated with dressing change, but since yesterday noted to have redness dorsum of right foot associated with swelling therefore was referred to emergency room for IV antibiotics by wound care team, patient denies associated fever chills, denies nausea, vomiting, no abdominal pain, complaining of intermittent foot pain, decreased sensation distal foot,admits to have elevated blood sugars in last several days in the range of 200, last hemoglobin A1c in October was 13.1, in emergency room patient noted to have elevated CRP of 10.96 blood sugars 131, x-ray of foot showed soft tissue ulceration plantar aspect inferior to the 1st MTP joint, no evidence of osteomyelitis was noted, patient received 1 dose of IV Zosyn and now being admitted to [facility] for further evaluation and treatment for right foot cellulitis and nonhealing diabetic foot ulcer. hospital course: patient was admitted for diabetic foot ulcer right foot- was initially started on vanco and Zosyn broad-spectrum antibiotics, MRI foot was done showed-cellulitis and abscess extending dorsally between the base of 1st and 2nd phalanges, acute osteomyelitis also noted, seen by surgery-no intervention, since no local abscess noted and wound drained itself and recommended-Can continue current local wound care with alginate packing to ulcer, fluffs, abd and camron roll. Cont no weight-bearing, blood sugar control, IV abx. Can f/u at wound care center. also patient was followed by ID: upon discharge patient was recommended IV vancomycin 6 week- and dated is 12/28/20. last Vanco trough yesterday was 15.5. moniter vanco trough weekly-next vanco trough on saturday. Dm:Hba1c levels 13 ,fs running 200's range currently adjusted lantus 15 units , fs siding scale coverage, Home medications- Trulicity and Jardiance on hold due to not available- further use of home medication at the discussion of rehab physician. monitor CBC, LFT, BMP weekly while the patient on antibiotics. above management discussed with patient in detail length he understand and in agreement with above plan. Time Spent with Patient Time attestation: Total time spent providing and/or coordinating discharge services: Discharge coordination time: Greater than 30 minutes Quality: Stroke Does the patient have a stroke diagnosis?: No Physical Exam Vital Signs: Vital Signs: Last Vital Signs Temp 98.1 F 11/23/21 11:12 Pulse 66 11/23/21 11:12 Resp 20 11/23/21 11:12 BP 138/80 11/23/21 11:12 Pulse Ox 94 11/23/21 11:12 BMI result Body Mass Index 37.5 General: awake alert, no acute distress.? CVS:regular rate rhythm, good peripheral pulses chest: lungs clear to auscultation, no respiratory distress, no wheeze, no rhonchi. Gastrointestinal :abdomen soft, obese, nontender, bowel sounds audible, no guarding , no rigidity. Extremities: Right foot plantar aspect with deep ulcer at the 1st metatarsal head area surrounded by thick callus, cellulitic changes of foot resolved, very scant thin serous drainage from area at this time, small amount of purulence from very small opening at distal and lateral aspect of right great toe. Callused skin from area sharply debrided and area exposed. The opening is very small and no further purulence was expressed, no fluctuance appreciated or surrounding erythema. Psych appropriate affect DS: Data Data Completed and Pending Labs on day of discharge: Laboratory Results - last 24 hr 11/22/21 11/22/21 11/23/21 15:26 19:58 05:46 Creatinine 0.59 Estim Creat Clear Calc 200.4 Estimated GFR > 60 POC Glucose 256 H 239 H Vancomycin Trough 01/11/23/21 11/23/21 05:46 07:32 11:08 Creatinine Estim Creat Clear Calc Estimated GFR POC Glucose 224 H 237 H Vancomycin Trough 15.5 Additional Comments Additional comments: MR/MR foot RT wo/w con IMPRESSION: Soft tissue ulceration along the plantar aspect of the 1st metatarsal head which extends deep to the level of the hallux sesamoids. Associated cellulitis and abscess formation which extends dorsally between the base of the 1st and 2nd proximal phalanges. Acute osteomyelitis within the tibial and fibular hallux sesamoids. Mild reactive marrow edema in the 1st proximal phalangeal base.? Discharge Plan Discharge Patient Disposition: Xfer [facility] Discharge Diagnosis: dm foot ulcer Referrals: Love Yepez MD [Physician] - 11/21/21 2:00 pm (You have an appointment with MELINDA Ricci on November 21 at 2:00 pm.) Discharge Medications: New acetaminophen 325 mg Tablet 650 mg PO Q6H PRN (Reason: Pain, Mild (Pain Scale 1-3)) Qty: 14 RF: 0 ammonium lactate 12 % Lotion 1 appl topical BID Qty: 225 RF: 0 Lantus U-100 Insulin 100 unit/mL Solution 15 unit subcut BEDTIME Qty: 10 RF: 0 Lantus U-100 Insulin 100 unit/mL Solution 12 unit subcut BEDTIME Qty: 10 RF: 0 insulin lispro [Humalog U-100 Insulin] 100 unit/mL Solution See Protocol unit subcut QIDACHS Qty: 10 RF: 0 Continued atorvastatin 40 mg tablet 1 tab PO BEDTIME RF: 0 amitriptyline 25 mg tablet 1 tab PO BEDTIME RF: 0 metformin 1,000 mg tablet 1 tab PO BID RF: 0 montelukast 10 mg tablet 1 tab PO BEDTIME RF: 0 Held Jardiance 25 mg tablet 1 tab PO DAILY RF: 0 Hold Instructions: Resume on 01/09/22. Trulicity 1.5 mg/0.5 mL pen injector 1.5 mg subcut MO RF: 0 Hold Instructions: Resume on 01/09/22. Discontinued levofloxacin 500 mg tablet 1 tab PO DAILY RF: 0 Discharge Orders: Discharge Order (Routine); Ordered 11/23/21 Ordered By: Gisella Chavira Diet: advance to usual diet and diabetic diet Activity on Discharge: As tolerated Stand Alone Forms: Patient Portal Discharge page Care Plan Goals: patient was admitted for diabetic foot ulcer right foot- was initially started on vanco and Zosyn broad-spectrum antibiotics, MRI foot was done showed-cellulitis and abscess extending dorsally between the base of 1st and 2nd phalanges, acute osteomyelitis also noted, seen by surgery-no intervention, since no local abscess noted and wound drained itself and recommended-Can continue current local wound care with alginate packing to ulcer, fluffs, abd and camron roll. Cont no weight-bearing, blood sugar control, IV abx. Can f/u at wound care center. also patient was followed by ID: upon discharge patient was recommended IV vancomycin 6 week- and dated is 12/28/20. last Vanco trough yesterday was 15.5. moniter vanco trough weekly-next vanco trough on saturday. Dm:Hba1c levels 13 ,fs running 200's range currently adjusted lantus 15 units , fs siding scale coverage, Home medications- Trulicity and Jardiance on hold due to not available- further use of home medication at the discussion of rehab physician. monitor CBC, LFT, BMP weekly while the patient on antibiotics. above management discussed with patient in detail length he understand and in agreement with above plan. Health Concerns: as above. Plan of Treatment: as above. Assessment: as above.
[2021-11-23 15:29] VITALS: BP 124/67; PULSE 65; RESP 16; TEMP 36.4; O2SAT 97
[2021-11-23 15:49] LABS: Glucose, Whole Blood 255 mg/dL (60-115)
[2021-11-23] MEDS: oxyCODONE HCl Immed Release 5 MG TABLET PO (16:31)
[2021-11-23 20:00] VITALS: BP 126/66; PULSE 66; RESP 16; TEMP 36.4; O2SAT 97
[2021-11-23 20:05] LABS: Glucose, Whole Blood 254 mg/dL (60-115)
== END 2021-11-23 21:00 | disposition skilled nursing facility (03) | DRG 344 ==
LOC: HO.ED 15:07 → HO.EDOVER 18:56 → HO.S3 11-15 09:54
PROVIDERS: Physician Assistant; Admitting Provider Hospitalist; Emergency Provider Student in an Organized Health Care Education/Training Program; Visit Provider Internal Medicine
DX: E11.69 Type 2 diabetes mellitus with other specified complication (principal); M86.171 Other acute osteomyelitis, right ankle and foot; E11.621 Type 2 diabetes mellitus with foot ulcer; L03.115 Cellulitis of right lower limb; L97.419 Non-pressure chronic ulcer of right heel and midfoot with unspecified severity; E11.65 Type 2 diabetes mellitus with hyperglycemia; L02.611 Cutaneous abscess of right foot; E66.9 Obesity, unspecified; Z68.37 Body mass index [BMI] 37.0-37.9, adult; E78.5 Hyperlipidemia, unspecified; F17.210 Nicotine dependence, cigarettes, uncomplicated; Z20.822 Contact with and (suspected) exposure to COVID-19; Z71.6 Tobacco abuse counseling; Z79.4 Long term (current) use of insulin; Z79.84 Long term (current) use of oral hypoglycemic drugs; Z79.899 Other long term (current) drug therapy
CPT/HCPCS: 36415; 36573; 73630; 73720; 80048; 80053; 80202; 82565; 82947; 83605; 85025; 85027; 85610; 85652; 86140; 86803; 87040; 87071; 87077; 87186; 87205; 87635; 96361; 96365; 97161; 99285; A9585; C1751; J1956; J2543; J3370

== ENCOUNTER → 2023-03-08 15:00 | Outpatient (RCR) | payer OTHER, SELFPAY ==
--- NOTE | ~2023-03-08 | XR_ITS ---
EXAMINATION: XR FOOT, RIGHT CLINICAL INFORMATION: Nonhealing wound. COMPARISON: Most recent right foot MRI dated 11/16/2021. TECHNIQUE: AP, lateral, and oblique views of the right foot. FINDINGS: Findings consistent with a soft tissue wound overlying the medial and plantar aspect of the 1st metatarsophalangeal joint. Possible minimal lucency/erosion at the medial base of the 1st proximal phalanx which appears similar when compared to the prior radiographs dated 11/14/2021. No new osseous erosion or periosteal reaction. No acute fracture or dislocation. XR/XR foot RT 2V IMPRESSION: Soft tissue wound adjacent to the 1st metatarsophalangeal joint. Minimal lucency/erosion at the medial base of the 1st proximal phalanx which appears unchanged. No new osseous erosion or periosteal reaction.
== END | disposition home or self-care (01) ==
LOC: HO.WCC 01-26 13:57
PROVIDERS: PCP Internal Medicine; Visit Provider Physician Assistant
DX: E11.621 Type 2 diabetes mellitus with foot ulcer (principal); L97.516 Non-pressure chronic ulcer of other part of right foot with bone involvement without evidence of necrosis; I87.2 Venous insufficiency (chronic) (peripheral); Z79.84 Long term (current) use of oral hypoglycemic drugs; Z79.4 Long term (current) use of insulin
CPT/HCPCS: 11042; 11043; 11044; 15275; 73620; 97597; 99213; Q4101

== ENCOUNTER 2023-05-21 08:59 | Outpatient (RCR) | payer OTHER, SELFPAY | END 2023-08-05 15:54 | disposition home or self-care (01) | LOC: HO.WCC 08:59 | PROVIDERS: Visit Provider Physician Assistant | DX: E11.621 Type 2 diabetes mellitus with foot ulcer (principal); E11.51 Type 2 diabetes mellitus with diabetic peripheral angiopathy without gangrene; L97.512 Non-pressure chronic ulcer of other part of right foot with fat layer exposed; T87.81 Dehiscence of amputation stump; E11.40 Type 2 diabetes mellitus with diabetic neuropathy, unspecified; I10 Essential (primary) hypertension; F17.210 Nicotine dependence, cigarettes, uncomplicated; Z79.4 Long term (current) use of insulin; Z79.84 Long term (current) use of oral hypoglycemic drugs; Z89.411 Acquired absence of right great toe; Z86.718 Personal history of other venous thrombosis and embolism | CPT/HCPCS: 11042; 99212 ==

== ENCOUNTER 2023-12-06 09:00 | Outpatient (RCR) | payer OTHER, SELFPAY | END 2024-04-03 09:00 | disposition home or self-care (01) | LOC: HO.WCC 09:00 | PROVIDERS: Visit Provider Physician Assistant | DX: Z09 Encounter for follow-up examination after completed treatment for conditions other than malignant neoplasm (principal); E11.51 Type 2 diabetes mellitus with diabetic peripheral angiopathy without gangrene; I87.2 Venous insufficiency (chronic) (peripheral); E66.9 Obesity, unspecified; F17.210 Nicotine dependence, cigarettes, uncomplicated; Z86.718 Personal history of other venous thrombosis and embolism; Z89.411 Acquired absence of right great toe; Z86.31 Personal history of diabetic foot ulcer | CPT/HCPCS: 11042; 11045; 99212; 99213 ==